=== PATIENT | male | born 1965 | race Caucasian/White ===

== ENCOUNTER 2021-12-05 13:39 | Inpatient (IN) | payer OTHER ==
[2021-12-05] MEDS ORDERED: SODIUM CHLORIDE 0.9% 1,000 ML IV STA (13:45)
[2021-12-05] MEDS ORDERED: HYDROmorphone 1 MG/ML 1 ML SYRINGE IVP STA (13:47)
--- NOTE | 2021-12-05 13:57 | ED ---
General Adult HPI - General Chief complaint: Chest Pain Stated complaint: chest pain Time Seen by Provider: 12/05/21 13:50 Source: patient, EMS Mode of arrival: EMS Limitations: no limitations - History of Present Illness Initial comments: 56-year-old male with no reported past medical history presents emergency Department with epigastric pain. He states it started right after he was eating lunch today. He has had some reflux over the past 2 days however today after eating some tomato soup and became sudden, sharp, 10 out of 10 pain. He called for an ambulance. EKG was performed which demonstrated significant ST segment depression with inverted T waves in all leads. They gave him a nitro and aspirin. Patient had no improvement in his symptoms. He denies any numbness or tingling in his extremities. No ripping or tearing sensation to his back. Denies previous history of cardiac disease. States he did have a stress test about 5 years ago and it was normal. Denies any fevers chills or cough. No previous abdominal surgeries. No other alleviating, precipitating or modifying factors - Related Data Home Medications Medication Instructions Recorded Confirmed Fenofibrate 160 mg PO DAILY 12/05/21 12/05/21 HYDROcodone/APAP 10-325MG [Alpha 1 tab PO TID 12/05/21 12/05/21 10-325] Olmesartan/Amlodipin/Hcthiazid 1 tab PO DAILY 12/05/21 12/05/21 [Tribenzor 40-10-25 mg Tablet] Semaglutide [Rybelsus] 14 mg PO DAILY 12/05/21 12/05/21 cloNIDine HCL [Catapres] 0.1 mg PO BID 12/05/21 12/05/21 metFORMIN HCL [Glucophage] 1,000 mg PO BID 12/05/21 12/05/21 Allergies Allergy/AdvReac Type Severity Reaction Status Date / Time No Known Allergies Allergy Verified 12/05/21 14:07 Review of Systems ROS Statement: Those systems with pertinent positive or pertinent negative responses have been documented in the HPI. ROS Other: All systems not noted in ROS Statement are negative. Past Medical History History of Any Multi-Drug Resistant Organisms: None Reported Smoking Status: Current every day smoker Past Alcohol Use History: None Reported Past Drug Use History: None Reported General Exam Limitations: no limitations General appearance: alert, in distress Head exam: Present: atraumatic, normocephalic, normal inspection Eye exam: Present: normal appearance, PERRL, EOMI. Absent: scleral icterus, conjunctival injection, periorbital swelling ENT exam: Present: normal exam, mucous membranes moist Neck exam: Present: normal inspection. Absent: tenderness, meningismus, lymphadenopathy Respiratory exam: Present: normal lung sounds bilaterally. Absent: respiratory distress, wheezes, rales, rhonchi, stridor Cardiovascular Exam: Present: regular rate, normal rhythm, normal heart sounds. Absent: systolic murmur, diastolic murmur, rubs, gallop, clicks GI/Abdominal exam: Present: soft, tenderness (epigastric), normal bowel sounds. Absent: distended, guarding, rebound, rigid Extremities exam: Present: normal inspection, full ROM, normal capillary refill. Absent: tenderness, pedal edema, joint swelling, calf tenderness Back exam: Present: normal inspection Neurological exam: Present: alert, oriented X3, CN II-XII intact Psychiatric exam: Present: normal affect, normal mood, anxious Skin exam: Present: warm, intact, normal color, diaphoretic. Absent: rash Course Vital Signs 12/05/21 12/05/21 12/05/21 13:40 14:33 15:00 Temperature 98.8 F Pulse Rate 58 L Respiratory 22 18 Rate Blood Pressure 163/94 194/109 O2 Sat by Pulse 98 96 Oximetry 12/05/21 12/05/21 12/05/21 16:00 17:00 18:00 Temperature Pulse Rate 82 84 82 Respiratory 16 18 18 Rate Blood Pressure 213/119 182/100 168/93 O2 Sat by Pulse 97 97 96 Oximetry 12/05/21 12/05/21 12/05/21 20:00 21:00 23:00 Temperature Pulse Rate 78 84 84 Respiratory 20 Rate Blood Pressure 190/89 177/89 220/114 O2 Sat by Pulse Oximetry 12/05/21 23:43 Temperature Pulse Rate 80 Respiratory Rate Blood Pressure 176/97 O2 Sat by Pulse Oximetry EKG Findings - EKG Comments: EKG Findings:: EKG demonstrates sinus bradycardia with a rate of 55. HI interval 160. QRS 138. QTC of 482. ST elevation aVR. Diffuse ST depression in the 2 through V6 as well as the inferior leads. Medical Decision Making - Medical Decision Making Upon arrival patient is probably placed in the trauma bay 4. He is hooked to continuous pulse ox and cardiac monitoring. IV access is established and he is given 1 mg of Dilaudid for pain control. Repeat EKG is performed which demonstrates significant ST segment depression. Laboratory studies are conducted and he is immediately taken over for CT of his abdomen and pelvis as there is concern for dissection. We do not lift for labs. Review the patient's laboratory studies done straight a white count of 14.1. Glucose is 342. Troponin negative. Lipase greater than 20,000. CT demonstrates no evidence of aortic dissection or aneurysm. Significant inflammatory changes surrounding the second and third part of the duodenum as well as the pancreatic head and neck. Patient is reevaluated and resting comfortably. Recommended admission for pancreatitis which the patient did agree to. Spoke with Dr. Albrecht who agreed to admit the patient. He does admit to daily alcohol use and therefore CIWA protocol also ordered. [place] score of 3 - Lab Data Result diagrams: 12/06/21 06:11 12/06/21 06:11 Lab Results 12/05/21 12/05/21 12/05/21 Range/Units 14:00 14:00 14:00 WBC 14.1 H (3.8-10.6) k/uL RBC 4.92 (4.30-5.90) m/uL Hgb 14.9 (13.0-17.5) gm/dL Hct 43.7 (39.0-53.0) % MCV 88.8 (80.0-100.0) fL MCH 30.2 (25.0-35.0) pg MCHC 34.0 (31.0-37.0) g/dL RDW 12.8 (11.5-15.5) % Plt Count 334 (150-450) k/uL MPV 7.6 Neutrophils % 60 % Lymphocytes % 31 % Monocytes % 5 % Eosinophils % 1 % Basophils % 1 % Neutrophils # 8.5 H (1.3-7.7) k/uL Lymphocytes # 4.4 (1.0-4.8) k/uL Monocytes # 0.8 (0-1.0) k/uL Eosinophils # 0.2 (0-0.7) k/uL Basophils # 0.1 (0-0.2) k/uL PT 9.9 (9.0-12.0) sec INR 0.9 (<1.2) APTT 20.7 L (22.0-30.0) sec Sodium 133 L (137-145) mmol/L Potassium 3.4 L (3.5-5.1) mmol/L Chloride 99 (98-107) mmol/L Carbon Dioxide 23 (22-30) mmol/L Anion Gap 11 mmol/L BUN 17 (9-20) mg/dL Creatinine 0.91 (0.66-1.25) mg/dL Est GFR (CKD-EPI)AfAm >90 (>60 ml/min/1.73 sqM) Est GFR (CKD-EPI)NonAf >90 (>60 ml/min/1.73 sqM) Glucose 342 H (74-99) mg/dL Calcium 8.9 (8.4-10.2) mg/dL Magnesium 2.3 (1.6-2.3) mg/dL Total Bilirubin 0.7 (0.2-1.3) mg/dL AST 19 (17-59) U/L ALT 20 (4-49) U/L Alkaline Phosphatase 82 (38-126) U/L Lactate Dehydrogenase (313-618) U/L Troponin I (0.000-0.034) ng/mL Total Protein 6.8 (6.3-8.2) g/dL Albumin 4.0 (3.5-5.0) g/dL Lipase >11397 H (23-300) U/L 12/05/21 12/05/21 Range/Units 14:00 14:00 WBC (3.8-10.6) k/uL RBC (4.30-5.90) m/uL Hgb (13.0-17.5) gm/dL Hct (39.0-53.0) % MCV (80.0-100.0) fL MCH (25.0-35.0) pg MCHC (31.0-37.0) g/dL RDW (11.5-15.5) % Plt Count (150-450) k/uL MPV Neutrophils % % Lymphocytes % % Monocytes % % Eosinophils % % Basophils % % Neutrophils # (1.3-7.7) k/uL Lymphocytes # (1.0-4.8) k/uL Monocytes # (0-1.0) k/uL Eosinophils # (0-0.7) k/uL Basophils # (0-0.2) k/uL PT (9.0-12.0) sec INR (<1.2) APTT (22.0-30.0) sec Sodium (137-145) mmol/L Potassium (3.5-5.1) mmol/L Chloride (98-107) mmol/L Carbon Dioxide (22-30) mmol/L Anion Gap mmol/L BUN (9-20) mg/dL Creatinine (0.66-1.25) mg/dL Est GFR (CKD-EPI)AfAm (>60 ml/min/1.73 sqM) Est GFR (CKD-EPI)NonAf (>60 ml/min/1.73 sqM) Glucose (74-99) mg/dL Calcium (8.4-10.2) mg/dL Magnesium (1.6-2.3) mg/dL Total Bilirubin (0.2-1.3) mg/dL AST (17-59) U/L ALT (4-49) U/L Alkaline Phosphatase (38-126) U/L Lactate Dehydrogenase 455 (313-618) U/L Troponin I <0.012 (0.000-0.034) ng/mL Total Protein (6.3-8.2) g/dL Albumin (3.5-5.0) g/dL Lipase (23-300) U/L Disposition Clinical Impression: Pancreatitis, Alcohol use disorder, Epigastric pain, Abnormal EKG Disposition: ADMITTED IP TO THIS [facility] Condition: Serious Is patient prescribed a controlled substance at d/c from ED?: No Time of Disposition: 16:32 Decision to Admit Reason: Admit from EC Decision Date: 12/05/21 Decision Time: 16:32
[2021-12-05 14:19] LABS: Basophils # (A) 0.1 k/uL (0-0.2); Basophils % (A) 1 %; Eosinophils # (A) 0.2 k/uL (0-0.7); Eosinophils % (A) 1 %; HCT 43.7 % (39.0-53.0); HGB 14.9 gm/dL (13.0-17.5); Lymphocytes # (A) 4.4 k/uL (1.0-4.8); Lymphocytes % (A) 31 %; MCH 30.2 pg (25.0-35.0); MCV 88.8 fL (80.0-100.0); Mean Platelet Volume 7.6; Monocytes # (A) 0.8 k/uL (0-1.0); Monocytes % (A) 5 %; Neutrophils # (A) 8.5 k/uL (1.3-7.7); Neutrophils % (A) 60 %; Platelet Count 334 k/uL (150-450); RBC 4.92 m/uL (4.30-5.90); RDW 12.8 % (11.5-15.5); WBC 14.1 k/uL (3.8-10.6)
[2021-12-05 14:33] LABS: ALT 20 U/L (4-49); AST 19 U/L (17-59); African American GFR (CKD) >90 (>60 ml/min/1.73 sqM); Alkaline Phosphatase 82 U/L (38-126); Anion Gap 11 mmol/L; Blood Urea Nitrogen 17 mg/dL (9-20); Calcium 8.9 mg/dL (8.4-10.2); Carbon Dioxide 23 mmol/L (22-30); Chloride 99 mmol/L (98-107); Glucose 342 mg/dL (74-99); Magnesium 2.3 mg/dL (1.6-2.3); Non-African American GFR(CKD) >90 (>60 ml/min/1.73 sqM); Potassium 3.4 mmol/L (3.5-5.1); Sodium 133 mmol/L (137-145); Total Bilirubin 0.7 mg/dL (0.2-1.3); Total Protein 6.8 g/dL (6.3-8.2)
--- NOTE | 2021-12-05 14:34 | XR ---
EXAMINATION TYPE: XR chest 1V portable DATE OF EXAM: 12/05/2021 COMPARISON: NONE HISTORY: Chest pain TECHNIQUE: Single frontal view of the chest is obtained. FINDINGS: There is no focal air space opacity, pleural effusion, or pneumothorax seen. The cardiac silhouette size is within normal limits. The osseous structures are intact. Ectasia of the aorta. M ild hyperinflation can be associated asthma or COPD. IMPRESSION: No acute process.
[2021-12-05 14:37] LABS: INR 0.9 (<1.2); Prothrombin Time 9.9 sec (9.0-12.0)
[2021-12-05 14:45] LABS: Partial Thromboplastin Time 20.7 sec (22.0-30.0)
--- NOTE | 2021-12-05 15:06 | CT ---
EXAMINATION TYPE: CT angio thor/abd pel aorta DATE OF EXAM: 12/05/2021 INDICATION: severe chest pain CT DLP: 2369.8 mGy.cm Automated Exposure Control for Dose Reduction was Utilized. TECHNIQUE AND CONTRAST: CT scan of the chest, abdomen and pelvis is performed without and with IV Contrast, as per aortic ang iogram protocol. The patient injected with 100 mL of Isovue 370. 3-D and MIP reconstruction images we re generated on an independent workstation and reviewed. COMPARISON: None available FINDINGS: Scattered arterial atherosclerotic calcifications. The ascending aorta measures up to 3.7 cm. Otherwi se normal caliber and enhancement of the thoracic and abdominal aorta as well as major mediastinal, a bdominal and pelvic arteries without significant stenosis, occlusion, dissection, aneurysm or AV malf ormation. No major or central pulmonary embolism. No gross cardiomegaly. Right lower lobe anterior 3 mm nodule. 4 mm nodule is seen at the medial aspect of the left upper lob e. Another more superior left upper lobe medial nodule measuring 4.3 mm. No follow-up is required for these nodules if low risk patient. If high risk patient, optional follow-up CT scan in 12 months can be considered. Grossly unremarkable lungs otherwise. Patent trachea and main bronchi. No pleural or pericardial effusion. Subcentimeter bilateral hilar, axillary and mediastinal lymph nodes, nonspecifi c. Enlarged liver with hepatic steatosis. Unremarkable gallbladder, spleen, adrenals and kidneys. Signif icant fat stranding surrounding the pancreatic head and neck and to a lesser extent the pancreatic joe dy suggestive of acute pancreatitis, please correlate clinically. 3 mm calcification is seen at the p osterior aspect of the pancreatic head. No CBD dilatation. Prostatic concretion. Unremarkable seminal vesicles and urinary bladder. Fluid and fat stranding are also seen surrounding the second and third parts of the duodenum. Grossly unremarkable stomach, remainder of the duodenum and small bowel. No gross colonic abnormality. Dulce l appendix. Subcentimeter mesenteric and retroperitoneal lymph nodes, nonspecific. Small fat-containi ng right inguinal hernia. No sizable ascites. No gross aggressive bone lesion. IMPRESSION: No evidence of aortic dissection, stenosis, occlusion or aneurysm. Significant inflammatory changes surrounding the second and third parts of the duodenum as well as th e pancreatic head and neck as detailed above. This could be related to an acutely inflamed peptic ulc er or acute pancreatitis, recommend clinical correlation, surgical consultation and further workup. O ther findings as described above.
[2021-12-05 15:15] LABS: Lipase >20000 U/L (23-300)
[2021-12-05] MEDS ORDERED: ONDANSETRON 4 MG/2 ML VIAL IVP PRN (16:32)
[2021-12-05] MEDS ORDERED: NALOXONE 0.4 MG/ML 1 ML VIAL IV PRN (16:32)
[2021-12-05] MEDS: HYDROmorphone 1 MG/ML 1 ML SYRINGE IVP PRN ×3 (16:52→23:11)
[2021-12-05] MEDS: SODIUM CHLORIDE 0.9% 1,000 ML IV SCH (16:56)
[2021-12-05] MEDS ORDERED: hydrALAZINE HCL 20 MG/ML 1 ML VIAL IVP STA (17:05)
[2021-12-05] MEDS ORDERED: LORazepam 2 MG/ML INJ IV PRN ×3 (17:06)
[2021-12-05] MEDS ORDERED: THIAMINE 100 MG/ML 2 ML VIAL IM STA (17:06)
[2021-12-05] MEDS: cloNIDine HCL 0.1 MG TAB PO SCH (23:10)
[2021-12-06 01:28] LABS: Glucose,Whole Blood 300 mg/dL (75-99)
[2021-12-06] MEDS: INSULIN ASPART (NovoLOG) 100 UNIT/ML VIAL SQ SCH ×5 (01:29→20:47)
[2021-12-06] MEDS: SODIUM CHLORIDE 0.9% 1,000 ML IV SCH ×3 (01:30→15:11)
[2021-12-06] MEDS: HYDROmorphone 1 MG/ML 1 ML SYRINGE IVP PRN ×7 (02:21→20:46)
[2021-12-06] MEDS: hydrALAZINE HCL 20 MG/ML 1 ML VIAL IVP PRN (05:22)
[2021-12-06 06:59] LABS: Glucose,Whole Blood 255 mg/dL (75-99)
[2021-12-06] MEDS: THIAMINE 100 MG TAB PO SCH ×2 (07:57→18:05)
[2021-12-06] MEDS: FENOFIBRATE 160 MG TAB PO SCH (07:57)
[2021-12-06] MEDS: cloNIDine HCL 0.1 MG TAB PO SCH ×2 (08:00→20:47)
[2021-12-06] MEDS ORDERED: LOSARTAN 50 MG TAB PO SCH (09:30)
[2021-12-06 09:47] LABS: African American GFR (CKD) 129.4 (60.0-200.0); Anion Gap 13.6 mmol/L (10.00-18.00); BUN/Creat Ratio 18.67 Ratio (12.00-20.00); Blood Urea Nitrogen 11.2 mg/dL (9.0-27.0); Calcium 8.6 mg/dL (8.7-10.3); Carbon Dioxide 23.4 mmol/L (20.0-27.5); Non-African American GFR(CKD) 111.6 (60.0-200.0); Potassium 3.7 mmol/L (3.5-5.5)
--- NOTE | 2021-12-06 09:50 | US ---
EXAMINATION TYPE: US gallbladder DATE OF EXAM: 12/06/2021 COMPARISON: CT 2021, US 2016 CLINICAL HISTORY: pancreatitis. Abdomen pain Exam done portable EXAM MEASUREMENTS: Liver Length: 21.4 cm Gallbladder Wall: 0.2 cm CBD: 0.8 cm Right Kidney: 12.0 x 5.6 x 6.3 cm Pancreas: partially obscured by overlying midline bowel gas Liver: enlarged, attenuating, increased echogenicity, heterogeneous with 2.3cm hypoechoic area adjac ent to gallbladder Gallbladder: borderline hydropic, 0.4cm hyperechoic non shadowing non mobile focus along posterior w all Evidence for sonographic Hillman's sign: no CBD: dilated Right Kidney: wnl IMPRESSION: 1. Nonspecific pattern to the liver represent hepatic CT stenosis with focal fatty sparing. Correlate clinically to exclude hepatocellular disease. 2. Gallbladder is borderline hydropic a 4 mm echogenic focus which could represent a nonshadowing sto ne versus gallbladder polyp. Common bile duct is dilated measuring 8 mm correlate for CBD obstruction .
[2021-12-06] MEDS: LOSARTAN 50 MG TAB PO SCH (10:12)
[2021-12-06 10:53] LABS: Basophils # (A) 0.02 X 10*3/uL (0.00-0.10); Basophils % (A) 0.1 %; Eosinophils # (A) 0.02 X 10*3/uL (0.04-0.35); Eosinophils % (A) 0.1 %; HCT 42.8 % (39.6-50.0); HGB 14.7 g/dL (13.0-17.0); Immature Grans, Automated 0.4 %; Lymphocytes # (A) 2.15 X 10*3/uL (0.90-5.00); Lymphocytes % (A) 13.9 %; MCH 29.5 pg (27.0-32.0); MCHC 34.3 g/dL (32.0-37.0); MCV 85.8 fL (80.0-97.0); Monocytes # (A) 0.87 X 10*3/uL (0.20-1.00); Monocytes % (A) 5.6 %; NRBC Per 100 WBC 0 /100 WBCS (0.0-0.0); Neutrophils % (A) 79.9 %; Platelet Count 228 X 10*3/uL (140-440); RBC 4.99 X 10*6/uL (4.40-5.60); RDW 12.9 % (11.5-14.5); WBC 15.52 X 10*3/uL (4.50-10.00)
[2021-12-06 10:54] LABS: RBC Morphology NORMAL
[2021-12-06 11:38] LABS: Glucose,Whole Blood 241 mg/dL (75-99)
--- NOTE | 2021-12-06 12:20 | P.CRDCN ---
History of Present Illness Consult date: 12/06/21 History of present illness: HISTORY OF PRESENT ILLNESS: This is a 56-year-old male with a past medical history significant for hypertension, hyperlipidemia, diabetes, nicotine dependence, and frequent alcohol use. Patient does not follow with a retail aide. We have been asked to see the patient in consultation for abnormal EKG. Patient examined at the bedside. Patient presented to the hospital with a chief complaint of abdominal pain. Patient was found to have pancreatitis with lipase greater than 20,000. EKG completed revealing sinus bradycardia with right bundle branch block and T- wave inversions in anterior lateral leads as well as inferior leads. Patient denies having any chest pain or pressure. He does report some occasional sh ortness of breath with exertion. Blood pressure uncontrolled with SBP 190-200. Patients blood pressure medications were adjusted this morning by internal medicine. * EKG reveals sinus bradycardia with right bundle branch block and T-wave inversions in anterior lateral leads as well as inferior leads. * Chest xray negative for acute process * Laboratory data: CBC 15.52. Hemoglobin 14.7. Platelet count 228. Sodium 135. Potassium 3.7. BUN 11. Creatinine 0.6. Troponin negative 3. Lipase greater than 20,000 * Current home cardiac medications include Olmesartan/amlodipine/hydrochlorothiazide 40-10-25 mg daily, catapres 0.1 BID, and fenofibrate 160 mg daily * Patient underwent Lexiscan stress test in 2016 which was negative for ischemia REVIEW OF SYSTEMS: At the time of my exam: CONSTITUTIONAL: Denies fever or chills. HEENT: Denies blurred vision, vision changes, or eye pain. Denies hemoptysis CARDIOVASCULAR: Denies chest pain. Denies orthopnea. Denies PND. Denies palpitations RESPIRATORY: Denies shortness of breath. GASTROINTESTINAL: Denies abdominal pain. Denies nausea or vomiting. HEMATOLOGIC: Denies bleeding disorders. GENITOURINARY: Denies any blood in urine. SKIN: Denies pruitis. Denies rash. PHYSICAL EXAM: VITAL SIGNS: Reviewed. GENERAL: Well-developed in no acute distress. HEENT: Head is normocephalic. Pupils are equal, round. Sclerae anicteric. Mucous membranes of the mouth are moist. Neck supple. No JVD or thyromegaly LUNGS: Respirations even and unlabored. Lungs essentially clear to auscultation bilaterally. HEART: Regular rate and rhythm. S1 and S2 heard. ABDOMEN: Soft. Nondistended. Nontender. EXTREMITIES: Normal range of motion. No clubbing or cyanosis. Peripheral pulses intact. No lower extremity edema NEUROLOGIC: Awake and alert. Oriented x 3. ASSESSMENT: Abdominal pain Pancreatitis Abnormal EKG with diffuse T-wave inversions Hypertension, uncontrolled Hyperlipidemia Diabetes Nicotine dependence Frequent alcohol use PLAN: Obtain 2D echo to assess cardiac structure and function Monitor blood pressure Add amlodipine 10 mg daily for optimal blood pressure control Patient will require stress testing when he is medically stable Further recommendations pending patient course Nurse practitioner note has been reviewed by physician. Signing provider agrees with the documented findings, assessment, and plan of care. Past Medical History Past Medical History: Hyperlipidemia, Hypertension, Osteoarthritis (OA) History of Any Multi-Drug Resistant Organisms: None Reported Past Surgical History: Hernia Repair, Tonsillectomy Past Anesthesia/Blood Transfusion Reactions: No Reported Reaction Smoking Status: Current every day smoker Past Alcohol Use History: None Reported Past Drug Use History: None Reported Medications and Allergies Home Medications Medication Instructions Recorded Confirmed Type Fenofibrate 160 mg PO DAILY 12/05/21 12/05/21 History HYDROcodone/APAP 10-325MG [[place] 1 tab PO TID 12/05/21 12/05/21 History 10-325] Olmesartan/Amlodipin/Hcthiazid 1 tab PO DAILY 12/05/21 12/05/21 History [Tribenzor 40-10-25 mg Tablet] Semaglutide [Rybelsus] 14 mg PO DAILY 12/05/21 12/05/21 History cloNIDine HCL [Catapres] 0.1 mg PO BID 12/05/21 12/05/21 History metFORMIN HCL [Glucophage] 1,000 mg PO BID 12/05/21 12/05/21 History Allergies Allergy/AdvReac Type Severity Reaction Status Date / Time No Known Allergies Allergy Verified 12/05/21 14:07 Physical Exam Vitals: Vital Signs Temp Pulse Pulse Resp BP BP Pulse Ox 12/06/21 05:05 193/97 12/06/21 04:40 97.6 F 89 20 217/113 92 L 12/06/21 01:28 98.5 F 93 20 217/106 95 12/05/21 23:43 80 176/97 12/05/21 23:00 84 220/114 12/05/21 21:00 84 177/89 12/05/21 20:00 78 20 190/89 12/05/21 18:00 82 18 168/93 96 12/05/21 17:00 84 18 182/100 97 12/05/21 16:00 82 16 213/119 97 12/05/21 15:00 18 194/109 96 12/05/21 14:33 98.8 F 12/05/21 13:40 58 L 22 163/94 98 Intake and Output 12/05/21 12/06/21 12/06/21 22:59 06:59 14:59 Other: # Voids 2 Weight 104.326 kg Results 12/06/21 06:11 12/06/21 06:11 Cardiac Enzymes 12/05/21 12/05/21 12/05/21 Range/Units 14:00 14:00 14:00 AST 19 (17-59) U/L Lactate Dehydrogenase 455 (313-618) U/L Troponin I <0.012 (0.000-0.034) ng/mL 12/05/21 12/05/21 Range/Units 18:26 21:21 AST (17-59) U/L Lactate Dehydrogenase (313-618) U/L Troponin I <0.012 <0.012 (0.000-0.034) ng/mL Coagulation 12/05/21 Range/Units 14:00 PT 9.9 (9.0-12.0) sec APTT 20.7 L (22.0-30.0) sec CBC 12/05/21 12/06/21 Range/Units 14:00 06:11 WBC 14.1 H 15.52 H (3.8-10.6) k/uL RBC 4.92 4.99 (4.30-5.90) m/uL Hgb 14.9 14.7 (13.0-17.5) gm/dL Hct 43.7 42.8 (39.0-53.0) % Plt Count 334 228 (150-450) k/uL Comprehensive Metabolic Panel 12/05/21 12/06/21 Range/Units 14:00 06:11 Sodium 133 L 135 (137-145) mmol/L Potassium 3.4 L 3.7 (3.5-5.1) mmol/L Chloride 99 98 (98-107) mmol/L Carbon Dioxide 23 23.4 (22-30) mmol/L BUN 17 11.2 (9-20) mg/dL Creatinine 0.91 0.6 (0.66-1.25) mg/dL Glucose 342 H 264 H (74-99) mg/dL Calcium 8.9 8.6 L (8.4-10.2) mg/dL AST 19 (17-59) U/L ALT 20 (4-49) U/L Alkaline Phosphatase 82 (38-126) U/L Total Protein 6.8 (6.3-8.2) g/dL Albumin 4.0 (3.5-5.0) g/dL Current Medications Generic Name Dose Route Start Last Admin Trade Name Freq PRN Reason Stop Dose Admin Clonidine 0.1 mg 12/05/21 21:00 12/06/21 08:00 Clonidine Hcl 0.1 Mg Tab PO 0.1 mg BID MARIA ELENA Administration Fenofibrate 160 mg 12/06/21 09:00 12/06/21 07:57 Fenofibrate 160 Mg Tab PO 160 mg DAILY MARIA ELENA Administration Hydralazine HCl 10 mg 12/06/21 05:02 12/06/21 05:22 Hydralazine Hcl 20 Mg/Ml 1 Ml Vial IVP 10 mg Q4HR PRN Administration Blood Pressure - High Hydromorphone HCl 1 mg 12/05/21 16:32 12/06/21 11:48 Hydromorphone 1 Mg/Ml 1 Ml Syringe IVP 1 mg Q3HR PRN Administration Severe Pain Sodium Chloride 1,000 mls @ 100 mls/hr 12/05/21 16:45 12/06/21 07:58 Saline 0.9% IV 130 mls/hr .Q10H MARIA ELENA Administration Insulin Aspart 0 unit 12/05/21 21:00 12/06/21 07:57 Insulin Aspart (Novolog) 100 Unit/Ml Vial SQ 4 unit ACHS MARIA ELENA Administration Protocol Lorazepam 1 mg 12/05/21 17:06 Lorazepam 2 Mg/Ml Inj IV Q2HR PRN CIWA 8 or 9 Lorazepam 1 mg 12/05/21 17:06 Lorazepam 2 Mg/Ml Inj IV Q1HR PRN CIWA 10 to 15 Lorazepam 2 mg 12/05/21 17:06 Lorazepam 2 Mg/Ml Inj IV 12/07/21 17:06 Q10M PRN CIWA 16 or higher Losartan Potassium 100 mg 12/06/21 09:30 12/06/21 10:12 Losartan 50 Mg Tab PO 100 mg DAILY MARIA ELENA Administration Naloxone HCl 0.2 mg 12/05/21 16:32 Naloxone 0.4 Mg/Ml 1 Ml Vial IV Q2M PRN Opioid Reversal Ondansetron HCl 4 mg 12/05/21 16:32 12/05/21 20:18 Ondansetron 4 Mg/2 Ml Vial IVP 4 mg Q8HR PRN Administration Nausea And Vomiting Pantoprazole Sodium 40 mg 12/06/21 12:00 Pantoprazole 40 Mg/10 Ml Vial IVP BID MARIA ELENA Thiamine HCl 100 mg 12/06/21 07:30 12/06/21 07:57 Thiamine 100 Mg Tab PO 100 mg BID-W/MEALS MARIA ELENA Administration Intake and Output 12/05/21 12/06/21 12/06/21 22:59 06:59 14:59 Other: # Voids 2 Weight 104.326 kg 12/06/21 06:11 12/06/21 06:11
--- NOTE | 2021-12-06 12:22 | CA ---
Transthoracic Echo Report Name: Siva Brady Age: 56 Gender: M : 1965 Exam Date: 12/06/2021 11:15 Exam Location: [facility] Ht (in): 68 Wt (lb): 230 Ordering Physician: Rachel Harkins Attending/Referring Phys: [id number], Shahana Simplex Operator Alesha Taylor RDCS Procedure CPT: Indications: LV function Cardiac Hx: Technical Quality: Technically difficult study Contrast 1: Lumason Total Dose (mL): 4 Contrast 2: Total Dose (mL): MEASUREMENTS (Male / Female) Normal Values 2D ECHO LV Diastolic Diameter PLAX 3.9 cm 4.2 - 5.9 / 3.9 - 5.3 cm LV Systolic Diameter PLAX 2.1 cm IVS Diastolic Thickness 1.7 cm 0.6 - 1.0 / 0.6 - 0.9 cm LVPW Diastolic Thickness 1.6 cm 0.6 - 1.0 / 0.6 - 0.9 cm LV Relative Wall Thickness 0.9 RV Internal Dim ED PLAX 4.1 cm LA Volume 77.4 cm??? 18 - 58 / 22 - 52 cm??? M-MODE Aortic Root Diameter MM 3.5 cm LA Systolic Diameter MM 3.5 cm LA Ao Ratio MM 1.0 DOPPLER AV Peak Velocity 183.3 cm/s AV Peak Gradient 13.4 mmHg LVOT Peak Velocity 133.8 cm/s LVOT Peak Gradient 7.2 mmHg MV Area PHT 4.0 cm??? Mitral E Point Velocity 79.5 cm/s Mitral A Point Velocity 69.8 cm/s Mitral E to A Ratio 1.1 MV Deceleration Time 189.9 ms MV E' Velocity 6.9 cm/s Mitral E to MV E' Ratio 11.6 TR Peak Velocity 213.6 cm/s TR Peak Gradient 18.3 mmHg Right Ventricular Systolic Press 23.3 mmHg FINDINGS Left Ventricle Normal left ventricular systolic function with no obvious regional wall motion abnormalities. Normal left ventricular diastolic filling pattern. Left ventricular ejection fraction is estimated at 55-60 %. Right Ventricle Right ventricle not well visualized. Right ventricular systolic pressure within normal limits. Right Atrium Normal right atrial size. Left Atrium Moderately increased left atrial volume. Mitral Valve Structurally normal mitral valve. [id number] mitral regurgitation. Aortic Valve No aortic valve stenosis or regurgitation. Tricuspid Valve Mild tricuspid regurgitation. Pulmonic Valve Trace pulmonic regurgitation. Pericardium No pericardial effusion. Aorta Normal size aortic root and proximal ascending aorta. CONCLUSIONS 1. Normal left ventricle size and function. #2. Moderate left atrial enlargement #3. Mild to moderate mitral regurgitation #4. Mild tricuspid regurgitation Previewed by: Dr. Jaxson Balbuena MD (Electronically Signed) Final Date: 06 December 2021 12:21
[2021-12-06] MEDS: PANTOPRAZOLE 40 MG/10 ML VIAL IVP SCH ×2 (13:01→20:47)
[2021-12-06] MEDS: amLODIPine 10 MG TAB PO SCH (13:01)
[2021-12-06 14:27] LABS: Total Bilirubin 0.4 mg/dL (0.30-1.20)
--- NOTE | 2021-12-06 14:32 | P.CONS ---
History of Present Illness - Reason for Consult Consult date: 12/06/21 Pancreatitis Requesting physician: Obed Albrecht - Chief Complaint Epigastric pain - History of Present Illness This a pleasant 56-year-old male who presented to the emergency department by EMS for sudden onset of severe epigastric/chest pain. States it began 2-3 days ago after eating soup yesterday the pain became very severe and rated it a 10 out of 10. He states that he did have some nausea and vomiting yesterday evening. States pain has improved somewhat today and is a 5-6 out of 10. He was also noted to have EKG changes on admission and cardiology was consulted. Cardiology recommended echo cardiogram and stress testing when patient medically stable. Patient denies any previous history of coronary artery disease. Patient was noted to have significantly elevated lipase greater than 20,000, consistent with acute pancreatitis. Gastroenterology was consulted for pancreatitis. Patient denies any previous history of pancreatitis in the past. Denies any previous history of cholecystectomy or gallbladder disease. No new medications or recent antibiotics. States that he is a moderate drinker 6 pack or more of beer a week along with shots of whiskey for many many years. Denies any history of underlying liver disease. Patient underwent CT angiogram thoracic and abdomen pelvis and aorta that showed significant inflammatory changes around the second and third parts of the duodenum as well as the pancreatic head and neck. Review of Systems REVIEW OF SYSTEMS: CARDIOPULMONARY: No chest pain or shortness of breath. Gastrointestinal: Right upper quadrant and epigastric pain. Nausea and vomiting. No hematemesis, coffee-ground emesis. No rectal bleeding, or melena. GENITOURINARY: No dysuria or hematuria. MUSCULOSKELETAL: Reports normal range of motion., Joint pain. SKIN: No rashes. No jaundice. ENDOCRINE: No chills, fevers. No excessive weight gain or loss. No polydipsia or polyuria. PSYCHIATRIC: Unremarkable. NEUROLOGY: No change in mental status. Denies dizziness, headache. ENT: Vision unremarkable. CONSTITUTIONAL: No recent weight loss. No fever, chills, night sweats. Past Medical History Past Medical History: Hyperlipidemia, Hypertension, Osteoarthritis (OA) History of Any Multi-Drug Resistant Organisms: None Reported Past Surgical History: Hernia Repair, Tonsillectomy Past Anesthesia/Blood Transfusion Reactions: No Reported Reaction Smoking Status: Current every day smoker Past Alcohol Use History: None Reported Past Drug Use History: None Reported Medications and Allergies Home Medications Medication Instructions Recorded Confirmed Type Fenofibrate 160 mg PO DAILY 12/05/21 12/05/21 History HYDROcodone/APAP 10-325MG [Brohard 1 tab PO TID 12/05/21 12/05/21 History 10-325] Olmesartan/Amlodipin/Hcthiazid 1 tab PO DAILY 12/05/21 12/05/21 History [Tribenzor 40-10-25 mg Tablet] Semaglutide [Rybelsus] 14 mg PO DAILY 12/05/21 12/05/21 History cloNIDine HCL [Catapres] 0.1 mg PO BID 12/05/21 12/05/21 History metFORMIN HCL [Glucophage] 1,000 mg PO BID 12/05/21 12/05/21 History Allergies Allergy/AdvReac Type Severity Reaction Status Date / Time No Known Allergies Allergy Verified 12/05/21 14:07 Physical Exam Vitals: Vital Signs Temp Pulse Pulse Resp BP BP Pulse Ox 12/06/21 12:21 98.1 F 88 16 189/87 98 12/06/21 05:05 193/97 12/06/21 04:40 97.6 F 89 20 217/113 92 L 12/06/21 01:28 98.5 F 93 20 217/106 95 12/05/21 23:43 80 176/97 12/05/21 23:00 84 220/114 12/05/21 21:00 84 177/89 12/05/21 20:00 78 20 190/89 12/05/21 18:00 82 18 168/93 96 12/05/21 17:00 84 18 182/100 97 12/05/21 16:00 82 16 213/119 97 12/05/21 15:00 18 194/109 96 12/05/21 14:33 98.8 F Intake and Output 12/05/21 12/06/21 12/06/21 22:59 06:59 14:59 Other: # Voids 2 Weight 104.326 kg General appearance: The patient is alert, oriented, appears in no acute distress. HET: Head is normocephalic and atraumatic. Conjunctiva pink. Sclera anicteric. Neck: Supple without lymphadenopathy. Trachea midline. Heart: S1 S2. Regular rate and rhythm. Lungs: Clear to auscultation. Abdomen: Soft, right upper quadrant tenderness, nondistended with hypoactive bowel sounds. No guarding or rigidity. Skin: No rashes. No jaundice. Extremities: Normal skin color and turgor. No pedal edema. Neurological: No focal deficits. Alert and oriented x3. Results CBC & Chem 7: 12/06/21 06:11 12/06/21 06:11 Labs: Abnormal Lab Results - Last 24 Hours (Table) 12/05/21 12/05/21 12/05/21 Range/Units 14:00 14:00 14:00 WBC 14.1 H (3.8-10.6) k/uL Immature Gran # (0.00-0.04) X 10*3/uL Neutrophils # 8.5 H (1.3-7.7) k/uL Eosinophils # (0.04-0.35) X 10*3/uL APTT 20.7 L (22.0-30.0) sec Sodium 133 L (137-145) mmol/L Potassium 3.4 L (3.5-5.1) mmol/L Glucose 342 H (74-99) mg/dL POC Glucose (mg/dL) (75-99) mg/dL Calcium (8.7-10.3) mg/dL Lipase >52225 H (23-300) U/L 12/06/21 12/06/21 12/06/21 Range/Units 01:27 06:11 06:11 WBC 15.52 H (3.8-10.6) k/uL Immature Gran # 0.06 H (0.00-0.04) X 10*3/uL Neutrophils # 12.40 H (1.3-7.7) k/uL Eosinophils # 0.02 L (0.04-0.35) X 10*3/uL APTT (22.0-30.0) sec Sodium (137-145) mmol/L Potassium (3.5-5.1) mmol/L Glucose 264 H (74-99) mg/dL POC Glucose (mg/dL) 300 H (75-99) mg/dL Calcium 8.6 L (8.7-10.3) mg/dL Lipase (23-300) U/L 12/06/21 12/06/21 Range/Units 06:57 11:36 WBC (3.8-10.6) k/uL Immature Gran # (0.00-0.04) X 10*3/uL Neutrophils # (1.3-7.7) k/uL Eosinophils # (0.04-0.35) X 10*3/uL APTT (22.0-30.0) sec Sodium (137-145) mmol/L Potassium (3.5-5.1) mmol/L Glucose (74-99) mg/dL POC Glucose (mg/dL) 255 H 241 H (75-99) mg/dL Calcium (8.7-10.3) mg/dL Lipase (23-300) U/L Comments: CT angiogram thoracic and abdomen pelvis and aorta that showed no evidence of aortic dissection, stenosis, occlusion or aneurysm. Significant inflammatory changes around the second and third parts of the duodenum as well as the pancreatic head and neck. Assessment and Plan (1) Pancreatitis Narrative/Plan: 56-year-old who presented with epigastric pain with acute onset. No previous history of pancreatitis, however admitting labs showed elevated lipase greater than 20,000 consistent with acute pancreatitis. Patient admits to moderate alcohol use over the last several years. No new medications or family history of pancreatitis. CT angiogram did show significant inflammation surrounding the pancreas. Ultrasound of the gallbladder shows enlarged heterogeneous liver consistent with underlying fatty liver/hepatocellular disease. Gallbladder borderline hydropic with questionable non-mobile focus along posterior wall. However LFTs are normal and neck consistent with gallstone pancreatitis. Etiology likely due to underlying alcohol abuse. Continue with IV hydration, pain medications, and nothing by mouth diet. Current Visit: Yes Status: Acute Code(s): K85.90 - ACUTE PANCREATITIS WITHOUT NECROSIS OR INFECTION, UNSP SNOMED Code(s): 98641843 (2) Alcohol use disorder Current Visit: Yes Status: Acute Code(s): IQW2709 - SNOMED Code(s): 4192974 (3) Abnormal EKG Current Visit: Yes Status: Acute Code(s): R94.31 - ABNORMAL JUNIOR CTROCARDIOGRAM [ECG] [EKG] SNOMED Code(s): 970424763 Plan: 1. Continue symptomatic and supportive care 2. Aggressive IV hydration 3. Pain medication as needed 4. Nothing by mouth except for ice chips 5. Gallbladder ultrasound ordered and reviewed 6. Antiemetics as needed 7. Repeat labs in the morning Thank you for this consultation, we will continue to follow. Dr. Yesenia León I agree with the dictator's note, documented as a scribe by Leona Levy.
--- NOTE | 2021-12-06 15:00 | P.HPIM ---
History of Present Illness H&P Date: 12/06/21 This is a 56-year-old male who presents to hospital with complaints of epigastric pain ongoing over the last few days. States he had eaten a steak for dinner and the pain got worse. Decides to come to the when pain became 10/10 and severe following lunch at work the following day. He also had some associated nausea and vomiting. Thoracic Aorta CT shows no evidence for aortic dissection, there is significant inflammatory changes around the duodenum, pancreatic head and neck. Lipase is >20,000, most likely acute pancreatitis, lipase has improved down to 1203 following NPO diet with ice chips and hydration with normal saline. Chest xray is negative. Past medical history includes diabetes mellitus, hyperlipidemia, hypertension, arthritis, daily 1/2 pack per day smoker. Patient also reports drinking 6 plus packs of beer per week and well as whiskey. He has no history of acid reflux, or liver disease. He does follow with Dr Muñoz for pain management outpatient. Does not check his blood sugars at home. States he has not had a colonoscopy before, possibly an upper endoscopy in the past he is not sure for what. Cardiology and GI services have been consulted. Blood pressure is elevated in the 200s systolic, losartan was increased, he is also receiving PRN hydralazine. Additional labs showing white count 14.1, sodium 133, potassium 3.4. Troponin negative x 3. EKG showing sinus bradycardia with right bundle branch block, T wave inversion Gallbladder ultrasound showing stone vs. gall bladder polyp, and common bile duct is dilated measuring 8mm, correlate for CBD obstruction Echocardiogram showing EF 55-60% with mild tricuspid regurg and mild to moderate mitral regurg. Moderate left atrial enlargement. REVIEW OF SYSTEMS: CONSTITUTIONAL: No fever, no malaise, no fatigue. HEENT: No recent visual problems or hearing problems. Denied any sore throat. CARDIOVASCULAR: No chest pain, orthopnea, PND, no palpitations, no syncope. PULMONARY: No shortness of breath, no cough, no hemoptysis. GASTROINTESTINAL: No diarrhea, no nausea, no vomiting. Reports sharp epigastric pain radiating to the LUQ rating 10/10 NEUROLOGICAL: No headaches, no weakness, no numbness. HEMATOLOGICAL: Denies any bleeding or petechiae. GENITOURINARY: Denies any burning micturition, frequency, or urgency. MUSCULOSKELETAL/RHEUMATOLOGICAL: Denies any joint pain, swelling, or any muscle pain. ENDOCRINE: Denies any polyuria or polydipsia. The rest of the 14-point review of systems is negative. PHYSICAL EXAMINATION: GENERAL: The patient is alert and oriented x3, not in any acute distress. Well developed, well nourished. Obese. HEENT: Pupils are round and equally reacting to light. EOMI. No scleral icterus. No conjunctival pallor. Normocephalic, atraumatic. No pharyngeal erythema. No thyromegaly. CARDIOVASCULAR: S1 and S2 present. No murmurs, rubs, or gallops. PULMONARY: Chest is clear to auscultation, no wheezing or crackles. ABDOMEN: Soft, tender epigastric and LUQ, nondistended, normoactive bowel sounds. No palpable organomegaly. MUSCULOSKELETAL: No joint swelling or deformity. EXTREMITIES: No cyanosis, clubbing, or pedal edema. NEUROLOGICAL: Gross neurological examination did not reveal any focal deficits. SKIN: No rashes. Assessment and Plan Assessment Acute epigastric abdominal pain Acute pancreatitis Abnormal EKG, cardiology has been consulted Diabetes mellitus type 2 with hyperglycemia Hypertension, uncontrolled on admission Hyperlipidemia Chronic alcohol abuse, counseling provided Chronic daily tobacco use, counseling provided Chronic pain Obesity GI Prophylaxis DVT Prophylaxis Full Code Plan Continue NPO diet with ice chips Continue IV fluids Pain management Blood pressure medication adjustments Stress test recommended by cardiology once medically stable Cardiology, GI consultation Repeat labs tomorrow A1c Pending The impression and plan of care has been dictated by Antonina Hannah Nurse Practitioner as directed. Dr. Lili MD I have performed a history and physical examination and medical decision making of this patient, discussed the same with the dictator, and agree with the dictators assessment and plan as written, documented as a scribe. Based on total visit time, I have performed more than 50% of this visit. Past Medical History Past Medical History: Hyperlipidemia, Hypertension, Osteoarthritis (OA) History of Any Multi-Drug Resistant Organisms: None Reported Past Surgical History: Hernia Repair, Tonsillectomy Past Anesthesia/Blood Transfusion Reactions: No Reported Reaction Smoking Status: Current every day smoker Past Alcohol Use History: None Reported Past Drug Use History: None Reported Medications and Allergies Home Medications Medication Instructions Recorded Confirmed Type Fenofibrate 160 mg PO DAILY 12/05/21 12/05/21 History HYDROcodone/APAP 10-325MG [Clementon 1 tab PO TID 12/05/21 12/05/21 History 10-325] Olmesartan/Amlodipin/Hcthiazid 1 tab PO DAILY 12/05/21 12/05/21 History [Tribenzor 40-10-25 mg Tablet] Semaglutide [Rybelsus] 14 mg PO DAILY 12/05/21 12/05/21 History cloNIDine HCL [Catapres] 0.1 mg PO BID 12/05/21 12/05/21 History metFORMIN HCL [Glucophage] 1,000 mg PO BID 12/05/21 12/05/21 History Allergies Allergy/AdvReac Type Severity Reaction Status Date / Time No Known Allergies Allergy Verified 12/05/21 14:07 Physical Exam Vitals: Vital Signs Temp Pulse Pulse Resp BP BP Pulse Ox 12/06/21 05:05 193/97 12/06/21 04:40 97.6 F 89 20 217/113 92 L 12/06/21 01:28 98.5 F 93 20 217/106 95 12/05/21 23:43 80 176/97 12/05/21 23:00 84 220/114 12/05/21 21:00 84 177/89 12/05/21 20:00 78 20 190/89 12/05/21 18:00 82 18 168/93 96 12/05/21 17:00 84 18 182/100 97 12/05/21 16:00 82 16 213/119 97 12/05/21 15:00 18 194/109 96 12/05/21 14:33 98.8 F 12/05/21 13:40 58 L 22 163/94 98 Intake and Output 12/05/21 12/06/21 12/06/21 22:59 06:59 14:59 Other: # Voids 2 Weight 104.326 kg Results CBC & Chem 7: 12/06/21 06:11 12/06/21 06:11 Labs: Abnormal Lab Results - Last 24 Hours (Table) 12/05/21 12/05/21 12/05/21 Range/Units 14:00 14:00 14:00 WBC 14.1 H (3.8-10.6) k/uL Neutrophils # 8.5 H (1.3-7.7) k/uL APTT 20.7 L (22.0-30.0) sec Sodium 133 L (137-145) mmol/L Potassium 3.4 L (3.5-5.1) mmol/L Glucose 342 H (74-99) mg/dL POC Glucose (mg/dL) (75-99) mg/dL Lipase >82562 H (23-300) U/L 12/06/21 12/06/21 Range/Units 01:27 06:57 WBC (3.8-10.6) k/uL Neutrophils # (1.3-7.7) k/uL APTT (22.0-30.0) sec Sodium (137-145) mmol/L Potassium (3.5-5.1) mmol/L Glucose (74-99) mg/dL POC Glucose (mg/dL) 300 H 255 H (75-99) mg/dL Lipase (23-300) U/L Thrombosis Risk Factor Assmnt - Choose All That Apply Any of the Below Risk Factors Present?: Yes Each Factor Represents 1 point: Age 41-60 years, Obesity (BMI >25) Other Risk Factors: Yes Thrombosis Risk Factor Assessment Total Risk Factor Score: 2 Thrombosis Risk Factor Assessment Level: Low Risk Assessment and Plan Time with Patient: Less than 30
[2021-12-06 17:18] LABS: Glucose,Whole Blood 203 mg/dL (75-99)
[2021-12-06 20:10] LABS: Glucose,Whole Blood 190 mg/dL (75-99)
[2021-12-07] MEDS: HYDROmorphone 1 MG/ML 1 ML SYRINGE IVP PRN ×3 (00:27→07:31)
[2021-12-07] MEDS: SODIUM CHLORIDE 0.9% 1,000 ML IV SCH ×3 (03:32→20:54)
[2021-12-07] MEDS: hydrALAZINE HCL 20 MG/ML 1 ML VIAL IVP PRN ×2 (04:52→19:54)
[2021-12-07 06:41] LABS: Basophils % (A) 0 %; Eosinophils # (A) 0.2 k/uL (0-0.7); Eosinophils % (A) 1 %; HCT 40.8 % (39.0-53.0); HGB 12.8 gm/dL (13.0-17.5); Lymphocytes # (A) 2.6 k/uL (1.0-4.8); Lymphocytes % (A) 20 %; MCH 28.8 pg (25.0-35.0); MCHC 31.5 g/dL (31.0-37.0); MCV 91.6 fL (80.0-100.0); Mean Platelet Volume 7.6; Monocytes # (A) 0.8 k/uL (0-1.0); Monocytes % (A) 6 %; Neutrophils # (A) 9.6 k/uL (1.3-7.7); Neutrophils % (A) 72 %; Platelet Count 275 k/uL (150-450); RBC 4.46 m/uL (4.30-5.90); RDW 12.8 % (11.5-15.5); WBC 13.4 k/uL (3.8-10.6)
[2021-12-07 06:54] LABS: Glucose,Whole Blood 231 mg/dL (75-99)
[2021-12-07 07:16] LABS: African American GFR (CKD) >90 (>60 ml/min/1.73 sqM); Anion Gap 7 mmol/L; Blood Urea Nitrogen 16 mg/dL (9-20); Calcium 8.2 mg/dL (8.4-10.2); Carbon Dioxide 26 mmol/L (22-30); Chloride 102 mmol/L (98-107); Glucose 210 mg/dL (74-99); Non-African American GFR(CKD) >90 (>60 ml/min/1.73 sqM); Potassium 3.6 mmol/L (3.5-5.1); Sodium 135 mmol/L (137-145)
[2021-12-07] MEDS: PANTOPRAZOLE 40 MG/10 ML VIAL IVP SCH ×2 (07:31→19:54)
[2021-12-07] MEDS: amLODIPine 10 MG TAB PO SCH (07:32)
[2021-12-07] MEDS: INSULIN ASPART (NovoLOG) 100 UNIT/ML VIAL SQ SCH ×4 (07:32→20:54)
[2021-12-07] MEDS: THIAMINE 100 MG TAB PO SCH ×2 (07:32→17:17)
[2021-12-07] MEDS: FENOFIBRATE 160 MG TAB PO SCH (07:32)
[2021-12-07] MEDS: cloNIDine HCL 0.1 MG TAB PO SCH (07:32)
[2021-12-07] MEDS: LOSARTAN 50 MG TAB PO SCH (07:32)
[2021-12-07] MEDS ORDERED: POTASSIUM CHLORIDE ER 20 MEQ TAB.ER PO STA (09:25)
--- NOTE | 2021-12-07 10:28 | P.PN ---
Subjective Progress Note Date: 12/07/21 HISTORY OF PRESENT ILLNESS: This is a 56-year-old male with a past medical history significant for hypertension, hyperlipidemia, diabetes, nicotine dependence, and frequent alcohol use. 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 We have been asked to see the patient in consultation for abnormal EKG. Patient examined at the bedside. Patient presented to the hospital with a chief complaint of abdominal pain. Patient was found to have pancreatitis with lipase greater than 20,000. EKG completed revealing sinus bradycardia with right bundle branch block and T- wave inversions in anterior lateral leads as well as inferior leads. Patient denies having any chest pain or pressure. He does report some occasional shortness of breath with exertion. Blood pressure uncontrolled with SBP 190-200. Patients blood pressure medications were adjusted this morning by internal medicine. * EKG reveals sinus bradycardia with right bundle branch block and T-wave inversions in anterior lateral leads as well as inferior leads. * Chest xray negative for acute process * Laboratory data: CBC 15.52. Hemoglobin 14.7. Platelet count 228. Sodium 135. Potassium 3.7. BUN 11. Creatinine 0.6. Troponin negative 3. Lipase greater than 20,000 * Current home cardiac medications include Olmesa rtan/amlodipine/hydrochlorothiazide 40-10-25 mg daily, catapres 0.1 BID, and fenofibrate 160 mg daily * Patient underwent Lexiscan stress test in 2015 which was negative for ischemia 12/07/2021 Patient examined this morning. Patient is sitting up in the chair. Patient denies chest pain or pressure. He denies shortness of breath. Patient's blood pressure remains elevated with a reading of 177/89. Echocardiogram completed revealing ejection fraction 55-60%, mild to moderate mitral regurgitation, mild tricuspid regurgitation PHYSICAL EXAM: VITAL SIGNS: Reviewed. GENERAL: Well-developed in no acute distress. HEENT: Head is normocephalic. Pupils are equal, round. Sclerae anicteric. Mucous membranes of the mouth are moist. Neck supple. No JVD or thyromegaly LUNGS: Respirations even and unlabored. Lungs essentially clear to auscultation bilaterally. HEART: Regular rate and rhythm. S1 and S2 heard. ABDOMEN: Soft. Nondistended. Nontender. EXTREMITIES: Normal range of motion. No clubbing or cyanosis. Peripheral pulses intact. No lower extremity edema NEUROLOGIC: Awake and alert. Oriented x 3. ASSESSMENT: Abdominal pain Pancreatitis Abnormal EKG with diffuse T-wave inversions Hypertension, uncontrolled Hyperlipidemia Diabetes Nicotine dependence Frequent alcohol use PLAN: Continue current cardiac medications Increase Catapres to 0.2 mg twice a day for optimal blood pressure control Continue to monitor blood pressure Patient will require stress testing when he is medically stable Further recommendations pending patient course Nurse practitioner note has been reviewed by physician. Signing provider agrees with the documented findings, assessment, and plan of care. Objective - Vital Signs Vital signs: Vital Signs Temp 98.8 F 12/07/21 05:00 Pulse 83 12/07/21 05:00 Resp 16 12/07/21 05:00 BP 177/89 12/07/21 05:00 Pulse Ox 95 12/07/21 05:00 FiO2 Intake & Output 12/06/21 12/07/21 12/07/21 18:59 06:59 18:59 Intake Total 1380 10 Balance 1380 10 Intake: Intake, IV Titration 1380 Amount Sodium Chloride 0.9% 1, 1380 000 ml @ 100 mls/hr IV . Q10H MARIA ELENA Rx#:[id number] Oral 10 Other: Voiding Method Toilet # Voids 2 - Labs CBC & Chem 7: 12/07/21 05:37 12/07/21 05:37 Labs: Abnormal Lab Results - Last 24 Hours (Table) 12/06/21 12/06/21 12/06/21 Range/Units 06:11 06:11 06:11 WBC 15.52 H (4.50-10.00) X 10*3/uL Hgb (13.0-17.5) gm/dL Immature Gran # 0.06 H (0.00-0.04) X 10*3/uL Neutrophils # 12.40 H (1.80-7.70) X 10*3/uL Eosinophils # 0.02 L (0.04-0.35) X 10*3/uL Sodium (137-145) mmol/L Glucose (74-99) mg/dL POC Glucose (mg/dL) (75-99) mg/dL Hemoglobin A1c 9.7 H (0.0-6.0) % Calcium (8.4-10.2) mg/dL Lipase 1203 H (14-60) U/L 12/06/21 12/06/21 12/06/21 Range/Units 11:36 17:16 20:08 WBC (4.50-10.00) X 10*3/uL Hgb (13.0-17.5) gm/dL Immature Gran # (0.00-0.04) X 10*3/uL Neutrophils # (1.80-7.70) X 10*3/uL Eosinophils # (0.04-0.35) X 10*3/uL Sodium (137-145) mmol/L Glucose (74-99) mg/dL POC Glucose (mg/dL) 241 H 203 H 190 H (75-99) mg/dL Hemoglobin A1c (0.0-6.0) % Calcium (8.4-10.2) mg/dL Lipase (14-60) U/L 12/07/21 12/07/21 12/07/21 Range/Units 05:37 05:37 06:51 WBC 13.4 H (4.50-10.00) X 10*3/uL Hgb 12.8 L (13.0-17.5) gm/dL Immature Gran # (0.00-0.04) X 10*3/uL Neutrophils # 9.6 H (1.80-7.70) X 10*3/uL Eosinophils # (0.04-0.35) X 10*3/uL Sodium 135 L (137-145) mmol/L Glucose 210 H (74-99) mg/dL POC Glucose (mg/dL) 231 H (75-99) mg/dL Hemoglobin A1c (0.0-6.0) % Calcium 8.2 L (8.4-10.2) mg/dL Lipase (14-60) U/L
[2021-12-07 10:59] LABS: Glucose,Whole Blood 174 mg/dL (75-99)
[2021-12-07] MEDS: INSULIN DETEMIR (LEVEMIR) 100 UNIT/ML SYR SQ SCH (11:37)
[2021-12-07 12:12] VITALS: BMI 34.9
--- NOTE | 2021-12-07 15:54 | P.PN ---
Subjective Progress Note Date: 12/07/21 Principal diagnosis: Pancreatitis This a pleasant 56-year-old male who presented to the emergency department by EMS for sudden onset of severe epigastric/chest pain. States it began 2-3 days ago after eating soup yesterday the pain became very severe and rated it a 10 out of 10. He states that he did have some nausea and vomiting yesterday evening. States pain has improved somewhat today and is a 5-6 out of 10. He was also noted to have EKG changes on admission and cardiology was consulted. Cardiology recommended echo cardiogram and stress testing when patient medically stable. Patient denies any previous history of coronary artery disease. Patient was noted to have significantly elevated lipase greater than 20,000, consistent with acute pancreatitis. Gastroenterology was consulted for pancreatitis. Patient denies any previous history of pancreatitis in the past. Denies any previous history of cholecystectomy or gallbladder disease. No new medications or recent antibiotics. States that he is a moderate drinker 6 pack or more of beer a week along with shots of whiskey for many many years. Denies any history of underlying liver disease. Patient underwent CT angiogram thoracic and abdomen pelvis and aorta that showed significant inflammatory changes around the second and third parts of the duodenum as well as the pancreatic head and neck. 12/07/2021: Patient is seen and examined today as a follow-up. He came in with epigastric/right upper quadrant pain. She had EKG changes on admission. He is denying any chest pain or shortness of breath. Cardiology is following and recommending a stress test when patient is medically stable. He states abdominal pain has improved. No further nausea vomiting. No bowel movement but he is passing gas. Lipase improved to 504 today. His repeat liver enzymes were normal again yesterday. Unlikely we are dealing with gallstone pancreatitis, likely related to underlying alcoholism. Objective - Vital Signs Vital signs: Vital Signs Temp 98.8 F 12/07/21 05:00 Pulse 83 12/07/21 05:00 Resp 16 12/07/21 05:00 BP 177/89 12/07/21 05:00 Pulse Ox 95 12/07/21 05:00 FiO2 Intake & Output 12/06/21 12/07/21 12/07/21 18:59 06:59 18:59 Intake Total 1380 10 Balance 1380 10 Intake: Intake, IV Titration 1380 Amount Sodium Chloride 0.9% 1, 1380 000 ml @ 100 mls/hr IV . Q10H [facility] Rx#:[id number] Oral 10 Other: Voiding Method Toilet # Voids 2 - Exam General appearance: The patient is alert, oriented, appears in no acute distress. HET: Head is normocephalic and atraumatic. Conjunctiva pink. Sclera anicteric. Neck: Supple without lymphadenopathy. Abdomen: Soft, nontender, nondistended with bowel sounds. No guarding or rigidity. Extremities: Normal skin color and turgor. No pedal edema Skin: No rashes, no jaundice Neurological: No focal deficits. Alert and oriented 3. - Labs CBC & Chem 7: 12/07/21 05:37 12/07/21 05:37 Labs: Abnormal Lab Results - Last 24 Hours (Table) 12/06/21 12/06/21 12/06/21 Range/Units 06:11 06:11 06:11 WBC 15.52 H (4.50-10.00) X 10*3/uL Hgb (13.0-17.5) gm/dL Immature Gran # 0.06 H (0.00-0.04) X 10*3/uL Neutrophils # 12.40 H (1.80-7.70) X 10*3/uL Eosinophils # 0.02 L (0.04-0.35) X 10*3/uL Sodium (137-145) mmol/L Glucose (74-99) mg/dL POC Glucose (mg/dL) (75-99) mg/dL Hemoglobin A1c 9.7 H (0.0-6.0) % Calcium (8.4-10.2) mg/dL Lipase 1203 H (14-60) U/L 12/06/21 12/06/21 12/06/21 Range/Units 11:36 17:16 20:08 WBC (4.50-10.00) X 10*3/uL Hgb (13.0-17.5) gm/dL Immature Gran # (0.00-0.04) X 10*3/uL Neutrophils # (1.80-7.70) X 10*3/uL Eosinophils # (0.04-0.35) X 10*3/uL Sodium (137-145) mmol/L Glucose (74-99) mg/dL POC Glucose (mg/dL) 241 H 203 H 190 H (75-99) mg/dL Hemoglobin A1c (0.0-6.0) % Calcium (8.4-10.2) mg/dL Lipase (14-60) U/L 12/07/21 12/07/21 12/07/21 Range/Units 05:37 05:37 06:51 WBC 13.4 H (4.50-10.00) X 10*3/uL Hgb 12.8 L (13.0-17.5) gm/dL Immature Gran # (0.00-0.04) X 10*3/uL Neutrophils # 9.6 H (1.80-7.70) X 10*3/uL Eosinophils # (0.04-0.35) X 10*3/uL Sodium 135 L (137-145) mmol/L Glucose 210 H (74-99) mg/dL POC Glucose (mg/dL) 231 H (75-99) mg/dL Hemoglobin A1c (0.0-6.0) % Calcium 8.2 L (8.4-10.2) mg/dL Lipase (14-60) U/L Assessment and Plan (1) Pancreatitis Narrative/Plan: 56-year-old who presented with epigastric pain with acute onset. No previous history of pancreatitis, however admitting labs showed elevated lipase greater than 20,000 consistent with acute pancreatitis. Patient admits to moderate alcohol use over the last several years. No new medications or family history of pancreatitis. CT angiogram did show significant inflammation surrounding the pancreas. Ultrasound of the gallbladder shows enlarged heterogeneous liver con sistent with underlying fatty liver/hepatocellular disease. Gallbladder borderline hydropic with questionable non-mobile focus along posterior wall. However LFTs are normal and neck consistent with gallstone pancreatitis. Etiology likely due to underlying alcohol abuse. Continue with IV hydration, pain medications, and nothing by mouth diet. Repeat LFTs remained normal. Again unlikely dealing with occult stone pancreatitis and likely etiology related to alcohol abuse. Discussed with garth ent importance of alcohol abstinence. I will need to follow up outpatient with gastroenterology as well for fatty liver/hepatocellular disease. Current Visit: Yes Status: Acute Code(s): K85.90 - ACUTE PANCREATITIS WITHOU T NECROSIS OR INFECTION, UNSP SNOMED Code(s): 15123269 (2) Alcohol use disorder Current Visit: Yes Status: Acute Code(s): SXF3480 - SNOMED Code(s): 1596297 (3) Abnormal EKG Narrative/Plan: Cardiology following Current Visit: Yes Status: Acute Code(s): R94.31 - ABNORMAL ELECTROCARDIOGRAM [ECG] [EKG] SNOMED Code(s): 626135115 Plan: 1. Continue symptomatic and supportive care 2. Clear liquid diet, advance as tolerated 3. Pain medication as needed 4. Continue with recommendations per cardiology 5. Gallbladder ultrasound ordered and reviewed 6. Antiemetics as needed 7. Alcohol abstinence 8. Patient is cleared for discharge from gastroenterology and he is able to tolerate solids. Will need to follow-up with gastroenterology in 4 weeks Thank you for this consultation, we will continue to follow. Dr. Yesenia León I agree with the dictator's note, documented as a scribe by Leona Levy.
[2021-12-07 17:05] LABS: Glucose,Whole Blood 165 mg/dL (75-99)
[2021-12-07] MEDS: cloNIDine HCL 0.2 MG TAB PO SCH (19:54)
[2021-12-07 20:19] LABS: Glucose,Whole Blood 273 mg/dL (75-99)
[2021-12-07 20:34] VITALS: RESP 16
[2021-12-07] MEDS ORDERED: ACETAMINOPHEN TAB 325 MG TAB PO PRN (21:57)
[2021-12-07] MEDS ORDERED: traMADol 50 MG TAB PO SCH (22:00)
[2021-12-07] MEDS ORDERED: SODIUM CHLORIDE 0.9% 1,000 ML IV SCH (22:00)
--- NOTE | 2021-12-07 22:04 | P.PN ---
Subjective Progress Note Date: 12/07/21 This is a 56-year-old male who presents to hospital with complaints of epigastric pain ongoing over the last few days. States he had eaten a steak for dinner and the pain got worse. Decides to come to the when pain became 10/10 and severe following lunch at work the following day. He also had some assoc iated nausea and vomiting. Thoracic Aorta CT shows no evidence for aortic dissection, there is significant inflammatory changes around the duodenum, pancreatic head and neck. Lipase is >20,000, most likely acute pancreatitis, lipase has improved down to 1203 following NPO diet with ice chips and hydration with normal saline. Chest xray is negative. Past medical history includes diabetes mellitus, hyperlipidemia, hypertension, arthritis, daily 1/2 pack per day smoker. Patient also reports drinking 6 plus packs of beer per week and well as whiskey. He has no history of acid reflux, or liver disease. He does follow with Dr Muñoz for pain management outpatient. Does not check his blood sugars at home. States he has not had a colonoscopy before, possibly an upper endoscopy in the past he is not sure for what. Cardiology and GI services have been consulted. Blood pressure is elevated in the 200s systolic, losartan was increased, he is also receiving PRN hydralazine. Additional labs showing white count 14.1, sodium 133, potassium 3.4. Troponin negative x 3. EKG showing sinus bradycardia with right bundle branch block, T wave inversion Gallbladder ultrasound showing stone vs. gall bladder polyp, and common bile duct is dilated measuring 8mm, correlate for CBD obstruction Echocardiogram showing EF 55-60% with mild tricuspid regurg and mild to moderate mitral regurg. Moderate left atrial enlargement. 12/07/2021 Today he is sitting up in chair, overall abdominal pain has improved. States early this morning he had drank some water and abdominal pain was about a 7/10, he had gotten up to the restroom, requested pain medication and took a nap. When he awake he states his abdominal pain was gone, and now reports mild LUQ abdominal pain about a 2/10. He is passing some gas, has not had a BM. He has tolerated clear liquid diet and will be advanced to low fiber for dinner. Lipase is 501 today, sodium 135, white count 13. Blood glucose in the 270-200 range, his A1C is 9.7. He will be discharged on lantus, and will follow up with endocrinology outpatient. Discussed routine screenings as well, he states he needs to make an eye appointment. Blood pressure medications adjusted today, stress test outpatient recommended by cardiology. Patient should be able to discharge home tomorrow. Review of Systems Constitutional: Denied any fatigue denied any fever. Cardio vascular: denied any chest pain, palpitations Gastrointestinal: denied any nausea, vomiting, diarrhea, reports mild LUQ abdominal pain Pulmonary: Denied any shortness of breath cough Neurologic denied any new focal deficits All inpatient medications were reviewed and appropriate changes in these medications as dictated in the interval history and assessment and plan. PHYSICAL EXAMINATION: GENERAL: The patient is alert and oriented x3, not in any acute distress. Well developed, well nourished. Obese. HEENT: Pupils are round and equally reacting to light. EOMI. No scleral icterus. No conjunctival pallor. Normocephalic, atraumatic. No pharyngeal erythema. No thyromegaly. CARDIOVASCULAR: S1 and S2 present. No murmurs, rubs, or gallops. PULMONARY: Chest is clear to auscultation, no wheezing or crackles. ABDOMEN: Soft, tender epigastric and LUQ, nondistended, normoactive bowel sounds. No palpable organomegaly. MUSCULOSKELETAL: No joint swelling or deformity. EXTREMITIES: No cyanosis, clubbing, or pedal edema. NEUROLOGICAL: Gross neurological examination did not reveal any focal deficits. SKIN: No rashes. Assessment and Plan Assessment Acute epigastric and LUQ abdominal pain Acute pancreatitis most likely from alcohol use Abnormal EKG Diabetes mellitus type 2, uncontrolled Hypertension, uncontrolled on admission Hyperlipidemia Chronic alcohol abuse, counseling provided Chronic daily tobacco use, counseling provided Chronic pain Obesity GI Prophylaxis DVT Prophylaxis Full Code Plan Diet advanced as tolerated IV fluids decreased Blood pressure medication adjustments Stress test recommended by cardiology once medically stable Cardiology, GI consultation Patient has been started on lantus and will follow up with endocrinology outpatient Education provided on importance of lifestyle modifications include smoking cessation, alcohol cessation, diet modification. Plan is for discharge home tomorrow. The impression and plan of care has been dictated by Antonina Hannah Nurse Practitioner as directed. Dr. Lili MD I have performed a history and physical examination and medical decision making of this patient, discussed the same with the dictator, and agree with the dictators assessment and plan as written, documented as a scribe. Based on total visit time, I have performed more than 50% of this visit. Objective - Vital Signs Vital signs: Vital Signs Temp 98.8 F 12/07/21 05:00 Pulse 83 12/07/21 05:00 Resp 16 12/07/21 05:00 BP 177/89 12/07/21 05:00 Pulse Ox 95 12/07/21 05:00 FiO2 Intake & Output 12/06/21 12/07/21 12/07/21 18:59 06:59 18:59 Intake Total 1380 10 Balance 1380 10 Intake: Intake, IV Titration 1380 Amount Sodium Chloride 0.9% 1, 1380 000 ml @ 100 mls/hr IV . Q10H [facility] Rx#:[id number] Oral 10 Other: Voiding Method Toilet # Voids 2 - Labs CBC & Chem 7: 12/07/21 05:37 12/07/21 05:37 Labs: Abnormal Lab Results - Last 24 Hours (Table) 12/06/21 12/06/21 12/06/21 Range/Units 06:11 06:11 06:11 WBC 15.52 H (4.50-10.00) X 10*3/uL Hgb (13.0-17.5) gm/dL Immature Gran # 0.06 H (0.00-0.04) X 10*3/uL Neutrophils # 12.40 H (1.80-7.70) X 10*3/uL Eosinophils # 0.02 L (0.04-0.35) X 10*3/uL Sodium (137-145) mmol/L Glucose 264 H (70-110) mg/dL POC Glucose (mg/dL) (75-99) mg/dL Hemoglobin A1c (0.0-6.0) % Calcium 8.6 L (8.7-10.3) mg/dL Lipase 1203 H (14-60) U/L 12/06/21 12/06/21 12/06/21 Range/Units 06:11 11:36 17:16 WBC (4.50-10.00) X 10*3/uL Hgb (13.0-17.5) gm/dL Immature Gran # (0.00-0.04) X 10*3/uL Neutrophils # (1.80-7.70) X 10*3/uL Eosinophils # (0.04-0.35) X 10*3/uL Sodium (137-145) mmol/L Glucose (70-110) mg/dL POC Glucose (mg/dL) 241 H 203 H (75-99) mg/dL Hemoglobin A1c 9.7 H (0.0-6.0) % Calcium (8.7-10.3) mg/dL Lipase (14-60) U/L 12/06/21 12/07/21 12/07/21 Range/Units 20:08 05:37 05:37 WBC 13.4 H (4.50-10.00) X 10*3/uL Hgb 12.8 L (13.0-17.5) gm/dL Immature Gran # (0.00-0.04) X 10*3/uL Neutrophils # 9.6 H (1.80-7.70) X 10*3/uL Eosinophils # (0.04-0.35) X 10*3/uL Sodium 135 L (137-145) mmol/L Glucose 210 H (70-110) mg/dL POC Glucose (mg/dL) 190 H (75-99) mg/dL Hemoglobin A1c (0.0-6.0) % Calcium 8.2 L (8.7-10.3) mg/dL Lipase (14-60) U/L 12/07/21 Range/Units 06:51 WBC (4.50-10.00) X 10*3/uL Hgb (13.0-17.5) gm/dL Immature Gran # (0.00-0.04) X 10*3/uL Neutrophils # (1.80-7.70) X 10*3/uL Eosinophils # (0.04-0.35) X 10*3/uL Sodium (137-145) mmol/L Glucose (70-110) mg/dL POC Glucose (mg/dL) 231 H (75-99) mg/dL Hemoglobin A1c (0.0-6.0) % Calcium (8.7-10.3) mg/dL Lipase (14-60) U/L Assessment and Plan Time with Patient: Less than 30
[2021-12-08 07:14] LABS: Glucose,Whole Blood 207 mg/dL (75-99)
[2021-12-08] MEDS ORDERED: metFORMIN 500 MG TAB PO SCH (07:30)
[2021-12-08] MEDS: LOSARTAN 50 MG TAB PO SCH (08:12)
[2021-12-08] MEDS: amLODIPine 10 MG TAB PO SCH (08:12)
[2021-12-08] MEDS: FENOFIBRATE 160 MG TAB PO SCH (08:12)
[2021-12-08] MEDS: cloNIDine HCL 0.2 MG TAB PO SCH (08:12)
[2021-12-08] MEDS: THIAMINE 100 MG TAB PO SCH (08:12)
[2021-12-08] MEDS: INSULIN ASPART (NovoLOG) 100 UNIT/ML VIAL SQ SCH ×2 (08:13→12:29)
[2021-12-08] MEDS: PANTOPRAZOLE 40 MG/10 ML VIAL IVP SCH (08:13)
[2021-12-08] MEDS: INSULIN DETEMIR (LEVEMIR) 100 UNIT/ML SYR SQ SCH (08:13)
[2021-12-08] MEDS ORDERED: HYDROcodone/APAP 10-325MG 1 EACH TAB PO SCH (09:00)
[2021-12-08] MEDS ORDERED: Semaglutide [Rybelsus] PO SCH (09:00)
[2021-12-08] MEDS ORDERED: LABETALOL 100 MG TAB PO SCH (09:15)
[2021-12-08 10:41] LABS: Basophils # (A) 0.06 X 10*3/uL (0.00-0.10); Basophils % (A) 0.6 %; Eosinophils # (A) 0.26 X 10*3/uL (0.04-0.35); Eosinophils % (A) 2.6 %; HCT 40.7 % (39.6-50.0); HGB 13.5 g/dL (13.0-17.0); Immature Grans, Automated 0.3 %; Lymphocytes # (A) 2.05 X 10*3/uL (0.90-5.00); Lymphocytes % (A) 20.5 %; MCH 29.4 pg (27.0-32.0); MCHC 33.2 g/dL (32.0-37.0); MCV 88.7 fL (80.0-97.0); Mean Platelet Volume 10.2 fL (9.5-12.2); NRBC Per 100 WBC 0 /100 WBCS (0.0-0.0); Platelet Count 282 X 10*3/uL (140-440); RBC 4.59 X 10*6/uL (4.40-5.60); RDW 13.1 % (11.5-14.5)
[2021-12-08 11:07] LABS: African American GFR (CKD) 77.3 (60.0-200.0); Anion Gap 14.3 mmol/L (10.00-18.00); BUN/Creat Ratio 15.17 Ratio (12.00-20.00); Blood Urea Nitrogen 18.2 mg/dL (9.0-27.0); Calcium 8.9 mg/dL (8.7-10.3); Carbon Dioxide 21.7 mmol/L (20.0-27.5); Non-African American GFR(CKD) 66.7 (60.0-200.0); Potassium 3.9 mmol/L (3.5-5.5)
[2021-12-08 12:02] LABS: Glucose,Whole Blood 202 mg/dL (75-99)
--- NOTE | 2021-12-08 12:04 | P.PN ---
Subjective Progress Note Date: 12/08/21 HISTORY OF PRESENT ILLNESS: This is a 56-year-old male with a past medical history significant for hypertension, hyperlipidemia, diabetes, nicotine dependence, and frequent alcohol use. 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 We have been asked to see the patient in consultation for abnormal EKG. Patient examined at the bedside. Patient presented to the hospital with a chief complaint of abdominal pain. Patient was found to have pancreatitis with lipase greater than 20,000. EKG completed revealing sinus bradycardia with right bundle branch block and T- wave inversions in anterior lateral leads as well as inferior leads. Patient denies having any chest pain or pressure. He does report some occasional shortness of breath with exertion. Blood pressure uncontrolled with SBP 190-200. Patients blood pressure medications were adjusted this morning by internal medicine. * EKG reveals sinus bradycardia with right bundle branch block and T-wave inversions in anterior lateral leads as well as inferior leads. * Chest xray negative for acute process * Laboratory data: CBC 15.52. Hemoglobin 14.7. Platelet count 228. Sodium 135. Potassium 3.7. BUN 11. Creatinine 0.6. Troponin negative 3. Lipase greater than 20,000 * Current home cardiac medications include Olmesa rtan/amlodipine/hydrochlorothiazide 40-10-25 mg daily, catapres 0.1 BID, and fenofibrate 160 mg daily * Patient underwent Lexiscan stress test in 2016 which was negative for ischemia 12/07/2021 Patient examined this morning. Patient is sitting up in the chair. Patient denies chest pain or pressure. He denies shortness of breath. Patient's blood pressure remains elevated with a reading of 177/89. Echocardiogram completed revealing ejection fraction 55-60%, mild to moderate mitral regurgitation, mild tricuspid regurgitation 12/08/2021 Patient examined this morning at the bedside. Patient denies chest pain or pressure. He denies shortness of breath. He reports improvement in his abdominal pain. He is tolerating oral diet. Patient's blood pressure remains elevated this morning. PHYSICAL EXAM: VITAL SIGNS: Reviewed. GENERAL: Well-developed in no acute distress. HEENT: Head is normocephalic. Pupils are equal, round. Sclerae anicteric. Mucous membranes of the mouth are moist. Neck supple. No JVD or thyromegaly LUNGS: Respirations even and unlabored. Lungs essentially clear to auscultation bilaterally. HEART: Regular rate and rhythm. S1 and S2 heard. ABDOMEN: Soft. Nondistended. Nontender. EXTREMITIES: Normal range of motion. No clubbing or cyanosis. Peripheral pulses intact. No lower extremity edema NEUROLOGIC: Awake and alert. Oriented x 3. ASSESSMENT: Abdominal pain Pancreatitis Abnormal EKG with diffuse T-wave inversions Hypertension, uncontrolled Hyperlipidemia Diabetes Nicotine dependence Frequent alcohol use PLAN: Continue current cardiac medications Add labetalol 100 mg twice a day Continue to monitor blood pressure Patient will require stress testing when he is medically stable. This may be performed on an outpatient basis. Further recommendations pending patient course Nurse practitioner note has been reviewed by physician. Signing provider agrees with the documented findings, assessment, and plan of care. Objective - Vital Signs Vital signs: Vital Signs Temp 98.2 F 12/08/21 05:00 Pulse 74 12/08/21 05:00 Resp 16 12/08/21 05:00 BP 179/92 12/08/21 05:00 Pulse Ox 98 12/08/21 05:00 FiO2 Intake & Output 12/07/21 12/08/21 12/08/21 18:59 06:59 18:59 Intake Total 1200 590 Balance 1200 590 Weight 104.326 kg Intake: Intake, IV Titration 1200 Amount Sodium Chloride 0.9% 1, 1200 000 ml @ 100 mls/hr IV . Q10H [facility] Rx#:[id number] Oral 590 Other: Voiding Method Toilet Toilet # Voids 3 - Labs CBC & Chem 7: 12/08/21 08:05 12/08/21 08:05 Labs: Abnormal Lab Results - Last 24 Hours (Table) 12/07/21 12/07/21 12/08/21 Range/Units 17:03 20:18 07:12 Glucose (70-110) mg/dL POC Glucose (mg/dL) 165 H 273 H 207 H (75-99) mg/dL 12/08/21 12/08/21 Range/Units 08:05 11:59 Glucose 211 H (70-110) mg/dL POC Glucose (mg/dL) 202 H (75-99) mg/dL
--- NOTE | 2021-12-08 12:57 | P.DS ---
Providers Date of admission: 12/05/21 16:32 Attending physician: Obed Albrecht Consults: 12/05/21 16:33 Consult Physician Urgent Consulting Provider: [facility] Consult Reason/Comments: abnormal ekg Do you want consulting provider notified?: Yes Consult Physician Urgent Consulting Provider: Rosalva León Consult Reason/Comments: acute pancreatitis Do you want consulting provider notified?: Yes Primary care physician: Jeovany Gonzalez Hospital Course: Final Diagnosis Acute epigastric and LUQ abdominal pain Acute pancreatitis most likely from alcohol use Abnormal EKG Diabetes mellitus type 2, uncontrolled Hypertension, uncontrolled on admission Hyperlipidemia Chronic alcohol abuse, counseling provided Chronic daily tobacco use, counseling provided Chronic pain Obesity Discharge Disposition Patient is stable for discharge home. He will need to follow up with cardiology in the office next week. Continue to monitor blood pressure daily and keep log for follow up appointment with primary care. Patient will also require blood glucose monitoring three times a day, he is being discharged on injectible insulin. Repeat labs in 2-3 days to follow up sodium, creatinine levels. Patient will also schedule appointment with endocrinology. Hospital Course This is a 56-year-old male who presents to hospital with complaints of epigastric pain ongoing over the last few days. States he had eaten a steak for dinner and the pain got worse. Decides to come to the when pain became 10/10 and severe following lunch at work the following day. He also had some associated nausea and vomiting. Thoracic Aorta CT shows no evidence for aortic dissection, there is significant inflammatory changes around the duodenum, pancreatic head and neck. Lipase is >20,000, most likely acute pancreatitis, lipase has improved down to 1203 following NPO diet with ice chips and hydration with normal saline. Chest xray is negative. Past medical history includes diabetes mellitus, hyperlipidemia, hypertension, arthritis, daily 1/2 pack per day smoker. Patient also reports drinking 6 plus packs of beer per week and well as whiskey. He has no history of acid reflux, or liver disease. He does follow with Dr Muñoz for pain management outpatient. Does not check his blood sugars at home. States he has not had a colonoscopy before, possibly an upper endoscopy in the past he is not sure for what. Cardiology has evaluated the patient for EKG changes showing T wave inversions and echocardiogram was completed. Patient was also hypertensive on admission his systolic was up into the 200s, medication changes were done and he was also started on labetolol for blood pressure control. Patients diet was advanced to low fiber by GI services and his lipase has improved down to 501 today. Initially there was possibility of acute gallstone pancreatitis however his liver enzymes have remained normal and patient is no longer experiencing abdominal pain. Initial Diagnostics/treatment Blood pressure is elevated in the 200s systolic, losartan was increased, he is also receiving PRN hydralazine. Additional labs showing white count 14.1, sodium 133, potassium 3.4. Troponin negative x 3. EKG showing sinus bradycardia with right bundle branch block, T wave inversion Gallbladder ultrasound showing stone vs. gall bladder polyp, and common bile duct is dilated measuring 8mm, correlate for CBD obstruction Echocardiogram showing EF 55-60% with mild tricuspid regurg and mild to moderate mitral regurg. Moderate left atrial enlargement. 12/08/2021 Patient evaluated today while sitting up in the chair. Overall his abdominal pain has improved greatly. He reports mild 1-2/10 discomfort and his tolerated diet. No nausea, vomiting, or diarrhea noted. Labs have improved White count is 10.0, hgb 13.5, sodium 140, potassium 3.9, BUN 18.2, creat 1.2, blood glucose in the 200s. Patient was maintained on metformin and rybelsus at home and his A1C was found to be 9.7 this admission. He was started on basal and sliding scale insulin. He was being followed by cardiology regarding EKG changes and will need stress test outpatient. Blood pressure medications have also been adjusted. Denying shortness of breath, denying chest pain. S1 S2 auscultated, lungs are clear. Abdomen is soft, normoactive bowel sounds, mild LUQ tenderness with palpation but has improved overall. He is cleared by GI services to follow up in the office. Ideally cardiology would like patient to monitor overnight, however he has received news regarding his family that requires immediate attention and cardiology has agreed with discharge today. Patient and have been educated on new diabetic regimine. He needs gluocometer at home, and also needs to have a blood pressure cuff for monitoring. Please see medication reconciliation for a list of current medication. Thank you for allowing us to participate in the care of this patient. The impression and plan of care has been dictated by Antonina Hannah, Nurse Practitioner as directed. Dr. Lili MD I have performed a history and physical examination and medical decision making of this patient, discussed the same with the dictator, and agree with the dictators assessment and plan as written, documented as a scribe. Based on total visit time, I have performed more than 50% of this visit. Discharge Instructions given to patient as follows; Patient will need stress test outpatient once stable Monitor blood pressure daily and keep log for follow up with PCP and cardiology Recommend total alcohol cessation Recommend smoking cessation Follow up with primary care provider Follow up with Dr Yesenia León in 4 weeks Follow up with Dr [facility] in 1-2 weeks Follow up with Dr Prcie for diabetic management Recommend routine eye screening Continue with low fat diet Recommend outpatient diabetes education Continue to check blood sugar before meals at at bedtime Patients A1C was 9.7 on oral diabetic medications at home for this reason injectable insulin was added to medication regimine Patient will require blood glucose monitoring three times a day Keep a log for follow up appointment with primary care, and new appoint with endocrinology Cover with novolog via subcutaneous injection based on sliding scale provided If blood sugar is less than 131 to do not administer insulin for that dose Rotate injection sites; back of upper arms, abdomen, outer part of thigh Sliding Scale Blood Sugar Administer 131 to 165 1 unit 166 to 205 2 units 206 to 245 3 units 246 to 285 4 units 286 to 325 5 units 326 to 365 6 units 366 to 400 7 units Basaglar Insulin 12 units subcutaneous daily for basal insulin Continue with metformin Continue with Rybelsus Monitor for hypoglycemia symptoms including; excessive sweating, fatigue, lightheadedness, shakiness, mental confusion, unresponsiveness, blurred vision, slurred speech, tremor, unsteadiness This is not a comprehensive list of low blood sugar symptoms - if you are unsure check blood sugar If blood sugar is less than 70 or symptomatic drink apple juice or 2 tbsp peanut butter, or whatever you have available to bring blood sugar up Patient Condition at Discharge: Fair Plan - Discharge Summary New Discharge Prescriptions: New Thiamine [Vitamin B-1] 100 mg PO BID-W/MEALS #60 tab Insulin Aspart [NovoLOG Flexpen] 0 units SQ ACHS #2 each Omeprazole 20 mg PO DAILY #30 cap cloNIDine HCL [Catapres] 0.2 mg PO BID #60 tab Losartan [Cozaar] 100 mg PO DAILY #30 tab Insulin Glargine,Hum.rec.anlog [Basaglar Kwikpen U-100] 12 unit SQ DAILY 2 Days #2 each amLODIPine [Norvasc] 10 mg PO DAILY #30 tab Labetalol [Trandate] 100 mg PO BID #60 tab Continue Fenofibrate 160 mg PO DAILY Semaglutide [Rybelsus] 14 mg PO DAILY metFORMIN HCL [Glucophage] 1,000 mg PO BID HYDROcodone/APAP 10-325MG [[place] 10-325] 1 tab PO TID Discontinued cloNIDine HCL [Catapres] 0.1 mg PO BID Olmesartan/Amlodipin/Hcthiazid [[place]enz[place] 40-10-25 mg Tablet] 1 tab PO DAILY Discharge Medication List Fenofibrate 160 mg PO DAILY 12/05/21 [History] HYDROcodone/APAP 10-325MG [[place] 10-325] 1 tab PO TID 12/05/21 [History] Semaglutide [Rybelsus] 14 mg PO DAILY 12/05/21 [History] metFORMIN HCL [Glucophage] 1,000 mg PO BID 12/05/21 [History] Insulin Aspart [NovoLOG Flexpen] 0 units SQ ACHS #2 each 12/08/21 [Rx] Insulin Glargine,Hum.rec.anlog [Basaglar Kwikpen U-100] 12 unit SQ DAILY 2 Days #2 each 12/08/21 [Rx] Labetalol [Trandate] 100 mg PO BID #60 tab 12/08/21 [Rx] Losartan [Cozaar] 100 mg PO DAILY #30 tab 12/08/21 [Rx] Omeprazole 20 mg PO DAILY #30 cap 12/08/21 [Rx] Thiamine [Vitamin B-1] 100 mg PO BID-W/MEALS #60 tab 12/08/21 [Rx] amLODIPine [Norvasc] 10 mg PO DAILY #30 tab 12/08/21 [Rx] cloNIDine HCL [Catapres] 0.2 mg PO BID #60 tab 12/08/21 [Rx] Follow up Appointment(s)/Referral(s): Lisa Thayer MD [Primary Care Provider] - 1-2 days Yoni Price MD [REFERRING] - 2 Weeks Rosalva León MD [STAFF PHYSICIAN] - 4 Weeks Jaxson Balbuena MD [STAFF PHYSICIAN] - 1 Week Ambulatory/Diagnostic Orders: Basic Metabolic Panel [LAB.AMB] Time Frame: 2 Days, Location: None Selected Patient Instructions/Handouts: Low Fiber Diet (DC), Diabetes and Nutrition (DC) Activity/Diet/Wound Care/Special Instructions: Patient will need stress test outpatient once stable Recommend total alcohol cessation Recommend smoking cessation Follow up with primary care provider Follow up with Dr Yesenia León in 4 weeks Follow up with Dr [facility]bu[facility] in 1-2 weeks Follow up with Dr Price for diabetic management Recommend routine eye screening Continue with low fat diet Recommend outpatient diabetes education Continue to check blood sugar before meals at at bedtime Patients A1C was 9.7 on oral diabetic medications at home for this reason injectable insulin was added to medication regimine Patient will require blood glucose monitoring three times a day Keep a log for follow up appointment with primary care, and new appoint with endocrinology Cover with novolog via subcutaneous injection based on sliding scale provided If blood sugar is less than 131 to do not administer insulin for that dose Rotate injection sites; back of upper arms, abdomen, outer part of thigh Sliding Scale Blood Sugar Administer 131 to 165 1 unit 166 to 205 2 units 206 to 245 3 units 246 to 285 4 units 286 to 325 5 units 326 to 365 6 units 366 to 400 7 units Basaglar Insulin 12 units subcutaneous daily for basal insulin Continue with metformin Continue with Rybelsus Monitor for hypoglycemia symptoms including; excessive sweating, fatigue, lightheadedness, shakiness, mental confusion, unresponsiveness, blurred vision, slurred speech, tremor, unsteadiness This is not a comprehensive list of low blood sugar symptoms - if you are unsure check blood sugar If blood sugar is less than 70 or symptomatic drink apple juice or 2 tbsp peanut butter, or whatever you have available to bring blood sugar up A prescription has been sent for glucose tablets if needed for low blood sugar Discharge Disposition: HOME SELF-CARE
[2021-12-08 13:50] VITALS: BP 126/69; PULSE 80; TEMP 98.3
[2021-12-08] MEDS ORDERED: PANTOPRAZOLE 40 MG TABLET PO SCH (21:00)
== END 2021-12-08 17:00 | disposition home or self-care (01) | DRG 440 ==
LOC: EC 13:39 → 4SSUR 16:32 → 5NMEDONC 21:22
PROVIDERS: ADMIT Internal Medicine; ATTEND Internal Medicine
DX: K85.20 Alcohol induced acute pancreatitis without necrosis or infection (principal); E11.65 Type 2 diabetes mellitus with hyperglycemia; E66.9 Obesity, unspecified; E78.5 Hyperlipidemia, unspecified; F10.10 Alcohol abuse, uncomplicated; F17.210 Nicotine dependence, cigarettes, uncomplicated; G89.29 Other chronic pain; K83.8 Other specified diseases of biliary tract; I11.9 Hypertensive heart disease without heart failure; I45.10 Unspecified right bundle-branch block; K76.0 Fatty (change of) liver, not elsewhere classified; R00.1 Bradycardia, unspecified; R94.31 Abnormal electrocardiogram [ECG] [EKG]; I08.1 Rheumatic disorders of both mitral and tricuspid valves; M19.90 Unspecified osteoarthritis, unspecified site; Z79.899 Other long term (current) drug therapy; Z79.84 Long term (current) use of oral hypoglycemic drugs; Z79.891 Long term (current) use of opiate analgesic; Z98.890 Other specified postprocedural states; Z90.89 Acquired absence of other organs; Z68.35 Body mass index [BMI] 35.0-35.9, adult; Z71.41 Alcohol abuse counseling and surveillance of alcoholic; Z71.6 Tobacco abuse counseling; Z71.3 Dietary counseling and surveillance
CPT/HCPCS: 36415; 71045; 71275; 74174; 76705; 80048; 80053; 82247; 83036; 83615; 83690; 83735; 84075; 84450; 84460; 84484; 85025; 85610; 85730; 93005; 93306; 96361; 96372; 96374; 96375; 99285

== ENCOUNTER 2022-01-25 16:43 | Emergency (ER) | payer OTHER ==
[2022-01-25 16:53] VITALS: RESP 20; TEMP 98.7
[2022-01-25] MEDS ORDERED: SODIUM CHLORIDE 0.9% 1,000 ML IV STA (17:50)
[2022-01-25] MEDS ORDERED: HYDROmorphone 0.5 MG/0.5 ML SYRINGE IVP STA (17:50)
[2022-01-25] MEDS ORDERED: ONDANSETRON 4 MG/2 ML VIAL IVP STA (18:11)
[2022-01-25] MEDS ORDERED: PANTOPRAZOLE 40 MG/10 ML VIAL IVP STA (18:11)
--- NOTE | 2022-01-25 18:15 | ED ---
Abdominal Pain HPI - General Chief Complaint: Abdominal Pain Stated Complaint: Abdominal Pain, SERENITY Time Seen by Provider: 01/25/22 17:50 Source: patient, family, RN notes reviewed, old records reviewed Mode of arrival: wheelchair Limitations: no limitations - History of Present Illness Initial Comments: 57-year-old male presents to the emergency room with upper abdominal pain that started at 2:00 after eating a sandwich. Patient is scheduled for chol ecystectomy tomorrow with Dr. Randle at [facility]. was seen last month and found to have pancreatitis with a gallstone. States pain feels similar to that episode. He has had a couple of episodes of vomiting yellow in color today. States he felt hot with chills but no documented temperature. Denies any diarrhea, no chest pain or difficulty breathing. Patient does have history of hypertension and pancreatitis. MD Complaint: abdominal pain -: hour(s) (4) Location: LUQ, RUQ, epigastric Radiation: none Severity scale (1-10): 10 Quality: sharp Consistency: constant Improves With: nothing Worsens With: nothing Context: other (Scheduled for cholecystectomy tomorrow, history of gallstones) Associated Symptoms: nausea, vomiting, fever, chills - Related Data Home Medications Medication Instructions Recorded Confirmed Fenofibrate 160 mg PO DAILY 12/05/21 01/25/22 HYDROcodone/APAP 10-325MG [[place] 1 tab PO TID PRN 12/05/21 01/25/22 10-325] Insulin Aspart [NovoLOG Flexpen] See Protocol SQ ACHS PRN 01/25/22 01/25/22 Losartan Potassium 100 mg PO DAILY 01/25/22 01/25/22 Nicotine 14Mg/24Hr Patch [Habitrol 1 patch TRANSDERM DAILY 01/25/22 01/25/22 14Mg/24Hr Patch] metFORMIN HCL 500 mg PO BID 01/25/22 01/25/22 Previous Rx's Medication Instructions Recorded Insulin Glargine,Hum.rec.anlog 12 unit SQ DAILY 2 Days #2 each 12/08/21 [Basaglar Kwikpen U-100] Labetalol [Trandate] 100 mg PO BID #60 tab 12/08/21 Omeprazole 20 mg PO DAILY #30 cap 12/08/21 Thiamine [Vitamin B-1] 100 mg PO BID-W/MEALS #60 tab 12/08/21 amLODIPine [Norvasc] 10 mg PO DAILY #30 tab 12/08/21 Allergies Allergy/AdvReac Type Severity Reaction Status Date / Time No Known Allergies Allergy Verified 01/25/22 20:24 Review of Systems ROS Statement: Those systems with pertinent positive or pertinent negative responses have been documented in the HPI. ROS Other: All systems not noted in ROS Statement are negative. Past Medical History Past Medical History: Hyperlipidemia, Hypertension, Osteoarthritis (OA) Additional Past Medical History / Comment(s): pancreatitis History of Any Multi-Drug Resistant Organisms: None Reported Past Surgical History: Hernia Repair, Tonsillectomy Past Anesthesia/Blood Transfusion Reactions: No Reported Reaction Past Psychological History: No Psychological Hx Reported Smoking Status: Current every day smoker Past Alcohol Use History: None Reported Past Drug Use History: Marijuana General Exam Limitations: no limitations General appearance: alert, in no apparent distress Head exam: Present: atraumatic, normocephalic, normal inspection Eye exam: Absent: periorbital swelling ENT exam: Present: normal exam, normal oropharynx, mucous membranes moist Neck exam: Present: normal inspection. Absent: tenderness, meningismus Respiratory exam: Present: normal lung sounds bilaterally. Absent: respiratory distress, accessory muscle use Cardiovascular Exam: Present: bradycardia GI/Abdominal exam: Present: soft, tenderness (Left upper quadrant and epigastric). Absent: distended, guarding, rebound, rigid Extremities exam: Present: normal capillary refill Back exam: Absent: tenderness, CVA tenderness (R), CVA tenderness (L), rash noted Neurological exam: Present: alert, oriented X3 Psychiatric exam: Present: normal affect, normal mood Skin exam: Present: warm, dry, normal color. Absent: cyanosis, diaphoretic, petechiae, pallor Course Vital Signs 01/25/22 01/25/22 16:50 20:31 Temperature 98.7 F Pulse Rate 51 L 86 Respiratory 20 20 Rate Blood Pressure 125/66 186/84 O2 Sat by Pulse 100 98 Oximetry Medical Decision Making - Medical Decision Making 57-year-old male presents to the emergency room with abdominal pain and vomiting today around 2pm. He is scheduled to have a cholecystectomy tomorrow with Dr. Randle at [facility] after a diagnosis of pancreatitis on December 05 of this year with a lipase >66997. Gallbladder u/s on 12/06/21 showed CBD dilated 8mm with possible obstruction. Today labs show white blood count 14.1, amylase 1562, lipase 20495. Patient's pain has been controlled with Dilaudid. No further vomiting in the emergency room. He is maintained NPO and IV fluids given. Case discussed with Dr. Andrews. We do not have GI coverage patient will be transferred to [facility] for choledocholithiasis. Dose of Zosyn was given. Patient is agreeable to this plan of care. Vital signs are stable. - Lab Data Result diagrams: 01/25/22 18:16 01/25/22 18:16 Lab Results 01/25/22 01/25/22 01/25/22 Range/Units 18:16 18:16 18:16 WBC 14.1 H (3.8-10.6) k/uL RBC 5.25 (4.30-5.90) m/uL Hgb 15.5 (13.0-17.5) gm/dL Hct 46.1 (39.0-53.0) % MCV 87.8 (80.0-100.0) fL MCH 29.5 (25.0-35.0) pg MCHC 33.6 (31.0-37.0) g/dL RDW 12.8 (11.5-15.5) % Plt Count 214 (150-450) k/uL MPV 8.4 Neutrophils % 75 % Lymphocytes % 17 % Monocytes % 5 % Eosinophils % 2 % Basophils % 0 % Neutrophils # 10.6 H (1.3-7.7) k/uL Lymphocytes # 2.4 (1.0-4.8) k/uL Monocytes # 0.8 (0-1.0) k/uL Eosinophils # 0.3 (0-0.7) k/uL Basophils # 0.0 (0-0.2) k/uL PT (9.0-12.0) sec INR (<1.2) APTT (22.0-30.0) sec Sodium 138 (137-145) mmol/L Potassium 3.1 L (3.5-5.1) mmol/L Chloride 103 (98-107) mmol/L Carbon Dioxide 24 (22-30) mmol/L Anion Gap 11 mmol/L BUN 23 H (9-20) mg/dL Creatinine 0.87 (0.66-1.25) mg/dL Est GFR (CKD-EPI)AfAm >90 (>60 ml/min/1.73 sqM) Est GFR (CKD-EPI)NonAf >90 (>60 ml/min/1.73 sqM) Glucose 175 H (74-99) mg/dL Plasma Lactic Acid Apolinar 2.0 (0.7-2.0) mmol/L Calcium 9.5 (8.4-10.2) mg/dL Total Bilirubin 0.5 (0.2-1.3) mg/dL AST 28 (17-59) U/L ALT 25 (4-49) U/L Alkaline Phosphatase 66 (38-126) U/L Total Protein 7.6 (6.3-8.2) g/dL Albumin 4.6 (3.5-5.0) g/dL Amylase 1562 H* (30-110) U/L Lipase 74352 H (23-300) U/L // Range/Units 19:08 WBC (3.8-10.6) k/uL RBC (4.30-5.90) m/uL Hgb (13.0-17.5) gm/dL Hct (39.0-53.0) % MCV (80.0-100.0) fL MCH (25.0-35.0) pg MCHC (31.0-37.0) g/dL RDW (11.5-15.5) % Plt Count (150-450) k/uL MPV Neutrophils % % Lymphocytes % % Monocytes % % Eosinophils % % Basophils % % Neutrophils # (1.3-7.7) k/uL Lymphocytes # (1.0-4.8) k/uL Monocytes # (0-1.0) k/uL Eosinophils # (0-0.7) k/uL Basophils # (0-0.2) k/uL PT 10.9 (9.0-12.0) sec INR 1.0 (<1.2) APTT 20.8 L (22.0-30.0) sec Sodium (137-145) mmol/L Potassium (3.5-5.1) mmol/L Chloride (98-107) mmol/L Carbon Dioxide (22-30) mmol/L Anion Gap mmol/L BUN (9-20) mg/dL Creatinine (0.66-1.25) mg/dL Est GFR (CKD-EPI)AfAm (>60 ml/min/1.73 sqM) Est GFR (CKD-EPI)NonAf (>60 ml/min/1.73 sqM) Glucose (74-99) mg/dL Plasma Lactic Acid Apolinar (0.7-2.0) mmol/L Calcium (8.4-10.2) mg/dL Total Bilirubin (0.2-1.3) mg/dL AST (17-59) U/L ALT (4-49) U/L Alkaline Phosphatase (38-126) U/L Total Protein (6.3-8.2) g/dL Albumin (3.5-5.0) g/dL Amylase (30-110) U/L Lipase (23-300) U/L Disposition Clinical Impression: Pancreatitis, Choledocholithiasis Disposition: OTHER INSTITUTION NOT DEFINED Referrals: Marta Cleaning [Primary Care Provider] - 1-2 days Decision Date: 01/25/22 Decision Time: 19:33 - Out of Hospital Transfer - Req. Specs Out of Hospital Transfer - Requested Specifics: Other Emergency Center ([facility])
[2022-01-25 18:52] LABS: ALT 25 U/L (4-49); AST 28 U/L (17-59); African American GFR (CKD) >90 (>60 ml/min/1.73 sqM); Albumin 4.6 g/dL (3.5-5.0); Alkaline Phosphatase 66 U/L (38-126); Anion Gap 11 mmol/L; Blood Urea Nitrogen 23 mg/dL (9-20); Calcium 9.5 mg/dL (8.4-10.2); Carbon Dioxide 24 mmol/L (22-30); Chloride 103 mmol/L (98-107); Glucose 175 mg/dL (74-99); Non-African American GFR(CKD) >90 (>60 ml/min/1.73 sqM); Potassium 3.1 mmol/L (3.5-5.1); Sodium 138 mmol/L (137-145); Total Bilirubin 0.5 mg/dL (0.2-1.3); Total Protein 7.6 g/dL (6.3-8.2)
[2022-01-25 18:56] LABS: Basophils % (A) 0 %; Eosinophils # (A) 0.3 k/uL (0-0.7); Eosinophils % (A) 2 %; HCT 46.1 % (39.0-53.0); HGB 15.5 gm/dL (13.0-17.5); Lymphocytes # (A) 2.4 k/uL (1.0-4.8); Lymphocytes % (A) 17 %; MCH 29.5 pg (25.0-35.0); MCHC 33.6 g/dL (31.0-37.0); MCV 87.8 fL (80.0-100.0); Mean Platelet Volume 8.4; Monocytes # (A) 0.8 k/uL (0-1.0); Monocytes % (A) 5 %; Neutrophils # (A) 10.6 k/uL (1.3-7.7); Neutrophils % (A) 75 %; Platelet Count 214 k/uL (150-450); RBC 5.25 m/uL (4.30-5.90); RDW 12.8 % (11.5-15.5); WBC 14.1 k/uL (3.8-10.6)
[2022-01-25 19:00] LABS: Amylase 1562 U/L (30-110)
[2022-01-25 19:12] LABS: Lipase 14420 U/L (23-300)
[2022-01-25] MEDS ORDERED: SODIUM CHLORIDE 0.9% 1,000 ML IV SCH (19:45)
[2022-01-25 20:02] LABS: Prothrombin Time 10.9 sec (9.0-12.0)
[2022-01-25] MEDS ORDERED: HYDROmorphone 1 MG/ML 1 ML SYRINGE IVP STA (20:07)
[2022-01-25 20:14] LABS: Partial Thromboplastin Time 20.8 sec (22.0-30.0)
[2022-01-25 20:32] VITALS: BP 186/84; PULSE 86
[2022-01-25] MEDS ORDERED: PIPERACILLIN-TAZOBACTAM 3.375 GM in SODIUM CHLORIDE 0.9% 100 ML IVPB STA (21:01)
== END 2022-01-25 21:34 | disposition other institution (70) ==
LOC: EC 16:43
DX: K85.90 Acute pancreatitis without necrosis or infection, unspecified (principal); K80.50 Calculus of bile duct without cholangitis or cholecystitis without obstruction; I10 Essential (primary) hypertension; E78.5 Hyperlipidemia, unspecified; F17.200 Nicotine dependence, unspecified, uncomplicated; Z79.899 Other long term (current) drug therapy
CPT/HCPCS: 99284; 96374; 96376; 96375; 96361; 36415; 80053; 82150; 83605; 83690; 85025; 85610; 85730; J2543; J2405; J1170 ×2; C9113

== ENCOUNTER → 2022-04-19 | Outpatient (CLI) | payer OTHER ==
[2022-04-19 18:05] LABS: Basophils # (A) 0.06 X 10*3/uL (0.00-0.10); Basophils % (A) 0.9 %; Eosinophils # (A) 0.23 X 10*3/uL (0.04-0.35); Eosinophils % (A) 3.4 %; HGB 14.1 g/dL (13.0-17.0); Immature Grans, Automated 0.3 %; Lymphocytes # (A) 2.87 X 10*3/uL (0.90-5.00); MCH 29.6 pg (27.0-32.0); MCHC 34.4 g/dL (32.0-37.0); Mean Platelet Volume 9.3 fL (9.5-12.2); Monocytes # (A) 0.57 X 10*3/uL (0.20-1.00); Monocytes % (A) 8.3 %; NRBC Per 100 WBC 0 /100 WBCS (0.0-0.0); Neutrophils # (A) 3.09 X 10*3/uL (1.80-7.70); Neutrophils % (A) 45.1 %; Platelet Count 312 X 10*3/uL (140-440); RBC 4.77 X 10*6/uL (4.40-5.60); RDW 13.9 % (11.5-14.5); WBC 6.84 X 10*3/uL (4.50-10.00)
[2022-04-19 19:54] LABS: Rheumatoid Factor, Qnt <10 IU/mL (0-15)
[2022-04-19 20:58] LABS: Cyclic Citrull Pep IgG Unit <0.5 U/mL; Cyclic Citrullinated Pep IgG NEGATIVE (NEGATIVE)
[2022-04-19 21:19] LABS: ALT 17 U/L (10-49); AST 20 U/L (14-35); African American GFR (CKD) 112.1 (60.0-200.0); Albumin 4.2 g/dL (3.8-4.9); Alkaline Phosphatase 50 U/L (41-126); BUN/Creat Ratio 15.33 Ratio (12.00-20.00); Blood Urea Nitrogen 12.8 mg/dL (9.0-27.0); Calcium 9.2 mg/dL (8.7-10.3); Chloride 101 mmol/L (96-109); Chol/HDL Ratio 3.98 Ratio; Globulin 2.8 g/dL (1.6-3.3); Glucose 114 mg/dL (70-110); LDL Cholesterol,Calculated 83.3 mg/dL (0.0-131.0); Non-African American GFR(CKD) 96.8 (60.0-200.0); Potassium 3.7 mmol/L (3.5-5.5); Sodium 141 mmol/L (135-145)
== END | disposition home or self-care (01) ==
LOC: LABWHC1 12:57
PROVIDERS: ATTEND Family Medicine
DX: Z00.00 Encounter for general adult medical examination without abnormal findings (principal); I10 Essential (primary) hypertension; E11.9 Type 2 diabetes mellitus without complications; E78.2 Mixed hyperlipidemia; M25.50 Pain in unspecified joint
CPT/HCPCS: 84439; 80061; 80053; 84443; 85025; 86431; 82306; 86038; 86200; 83036; 36415; G0103

== ENCOUNTER → 2022-09-15 | Outpatient (CLI) | payer OTHER ==
[2022-09-15 18:40] LABS: Basophils # (A) 0.03 X 10*3/uL (0.00-0.10); Basophils % (A) 0.4 %; Eosinophils # (A) 0.17 X 10*3/uL (0.04-0.35); Eosinophils % (A) 2.1 %; HGB 16.3 g/dL (13.0-17.0); Immature Grans, Automated 0.3 %; Lymphocytes # (A) 2.34 X 10*3/uL (0.90-5.00); Lymphocytes % (A) 29.3 %; MCH 29.2 pg (27.0-32.0); MCHC 33.3 g/dL (32.0-37.0); MCV 87.7 fL (80.0-97.0); Mean Platelet Volume 10.1 fL (9.5-12.2); Monocytes # (A) 0.48 X 10*3/uL (0.20-1.00); NRBC Per 100 WBC 0 /100 WBCS (0.0-0.0); Neutrophils # (A) 4.96 X 10*3/uL (1.80-7.70); Neutrophils % (A) 61.9 %; Platelet Count 316 X 10*3/uL (140-440); RBC 5.59 X 10*6/uL (4.40-5.60); RDW 12.9 % (11.5-14.5)
[2022-09-15 20:28] LABS: African American GFR (CKD) 114.1 (60.0-200.0); Albumin 4.3 g/dL (3.8-4.9); Albumin/Globulin Ratio 1.43 (1.60-3.17); Anion Gap 13.2 mmol/L (10.00-18.00); BUN/Creat Ratio 15.5 Ratio (12.00-20.00); Blood Urea Nitrogen 12.4 mg/dL (9.0-27.0); Calcium 9.5 mg/dL (8.7-10.3); Carbon Dioxide 24.8 mmol/L (20.0-27.5); Non-African American GFR(CKD) 98.5 (60.0-200.0); Potassium 3.9 mmol/L (3.5-5.5); Total Bilirubin 0.4 mg/dL (0.30-1.20); Total Protein 7.3 g/dL (6.2-8.2)
== END | disposition home or self-care (01) ==
LOC: LABWHC1 11:46
PROVIDERS: ATTEND Family Medicine
DX: E11.9 Type 2 diabetes mellitus without complications (principal)
CPT/HCPCS: 36415; 80053; 83036; 85025

== ENCOUNTER → 2023-02-16 | Outpatient (CLI) | payer OTHER ==
[2023-02-16 20:00] LABS: ALT 24 U/L (10-49); AST 25 U/L (14-35); Albumin 4.4 d/dL (3.8-4.9); Alkaline Phosphatase 52 U/L (41-126); Blood Urea Nitrogen 17.4 mg/dL (9.0-27.0); Carbon Dioxide 25.7 mmol/L (21.6-31.8); Chloride 102 mmol/L (96-109); Globulin 2.2 d/dL (1.6-3.3); Glucose 87 mg/dL (70-110); Potassium 3.6 mmol/L (3.5-5.5); Sodium 140 mmol/L (135-145); Total Bilirubin 0.3 mg/dL (0.3-1.2); Total Protein 6.6 d/dL (6.2-8.2)
[2023-02-17 02:00] LABS: Basophils # (A) 0.04 X 10*3/uL (0.00-0.10); Basophils % (A) 0.4 %; Eosinophils # (A) 0.22 X 10*3/uL (0.04-0.35); Eosinophils % (A) 2.2 %; HCT 42.3 % (39.6-50.0); HGB 14.6 d/dL (13.0-17.0); Lymphocytes # (A) 3.94 X 10*3/uL (0.90-5.00); MCH 30.2 pg (27.0-32.0); MCHC 34.5 d/dL (32.0-37.0); MCV 87.4 FL (80.0-97.0); Mean Platelet Volume 10.4 FL (9.5-12.2); Monocytes # (A) 0.71 X 10*3/uL (0.20-1.00); Monocytes % (A) 7.2 %; NRBC Per 100 WBC 0 X 10*3/uL (0.00-0.01); Neutrophils # (A) 4.93 X 10*3/uL (1.80-7.70); Platelet Count 322 X 10*3/uL (140-440); RBC 4.84 X 10*6/uL (4.40-5.60); RDW 12.8 % (11.5-14.5); WBC 9.86 X 10*3/uL (4.50-10.00)
== END | disposition home or self-care (01) ==
LOC: LABWHC1 16:01
PROVIDERS: ATTEND Family Medicine
DX: E11.9 Type 2 diabetes mellitus without complications (principal); E78.5 Hyperlipidemia, unspecified; M25.50 Pain in unspecified joint
CPT/HCPCS: 36415; 80053; 83036; 85025

== ENCOUNTER → 2023-08-10 | Outpatient (CLI) | payer OTHER ==
[2023-08-10 10:59] LABS: Basophils # (A) 0.04 X 10*3/uL (0.00-0.10); Basophils % (A) 0.4 %; Eosinophils # (A) 0.19 X 10*3/uL (0.04-0.35); Eosinophils % (A) 1.9 %; HCT 41.4 % (39.6-50.0); HGB 14.4 g/dL (13.0-17.0); Lymphocytes # (A) 3.44 X 10*3/uL (0.90-5.00); Lymphocytes % (A) 34.7 %; MCH 29.6 pg (27.0-32.0); MCHC 34.8 g/dL (32.0-37.0); MCV 85.2 FL (80.0-97.0); Mean Platelet Volume 10.1 FL (9.5-12.2); Monocytes # (A) 0.71 X 10*3/uL (0.20-1.00); Monocytes % (A) 7.2 %; NRBC Per 100 WBC 0 X 10*3/uL (0.00-0.01); Neutrophils # (A) 5.49 X 10*3/uL (1.80-7.70); Neutrophils % (A) 55.5 %; Platelet Count 297 X 10*3/uL (140-440); RBC 4.86 X 10*6/uL (4.40-5.60); RDW 12.6 % (11.5-14.5)
[2023-08-10 16:39] LABS: ALT 20 U/L (10-49); AST 18 U/L (14-35); Albumin/Globulin Ratio 1.54 Ratio (1.60-3.17); Alkaline Phosphatase 46 U/L (41-126); BUN/Creat Ratio 19.36 Ratio (12.00-20.00); Blood Urea Nitrogen 21.3 mg/dL (9.0-27.0); Calcium 9.3 mg/dL (8.7-10.3); Carbon Dioxide 26.1 mmol/L (21.6-31.8); Chloride 101 mmol/L (96-109); Chol/HDL Ratio 3.93 Ratio; Globulin 2.6 g/dL (1.6-3.3); Glucose 108 mg/dL (70-110); LDL Cholesterol,Calculated 91.8 mg/dL (0.0-131.0); Sodium 140 mmol/L (135-145); Total Bilirubin 0.4 mg/dL (0.3-1.2); Total Protein 6.6 g/dL (6.2-8.2)
== END | disposition home or self-care (01) ==
LOC: LABWHC1 07:50
PROVIDERS: ATTEND Family Medicine
DX: Z00.00 Encounter for general adult medical examination without abnormal findings (principal); Z12.5 Encounter for screening for malignant neoplasm of prostate
CPT/HCPCS: 80061; 80053; 84443; 85025; 82306; 36415; G0103

== ENCOUNTER → 2023-08-16 | Outpatient (CLI) | payer OTHER | END | disposition home or self-care (01) | LOC: LABWHC1 08:00 | PROVIDERS: ATTEND Family Medicine | DX: E87.6 Hypokalemia (principal) | CPT/HCPCS: 36415; 84132 ==

== ENCOUNTER → 2023-08-24 | Outpatient (CLI) | payer OTHER | END | disposition home or self-care (01) | LOC: LABWHC1 07:34 | PROVIDERS: ATTEND Family Medicine | DX: E87.6 Hypokalemia (principal) | CPT/HCPCS: 36415; 84132 ==

== ENCOUNTER → 2023-09-20 | Outpatient (CLI) | payer OTHER ==
[2023-09-20 11:39] LABS: ALT 23 U/L (10-49); AST 18 U/L (14-35); Albumin 4.3 g/dL (3.8-4.9); Albumin/Globulin Ratio 1.79 Ratio (1.60-3.17); Alkaline Phosphatase 45 U/L (41-126); BUN/Creat Ratio 19.55 Ratio (12.00-20.00); Blood Urea Nitrogen 21.5 mg/dL (9.0-27.0); Calcium 9.7 mg/dL (8.7-10.3); Carbon Dioxide 26.7 mmol/L (21.6-31.8); Chloride 100 mmol/L (96-109); Globulin 2.4 g/dL (1.6-3.3); Glucose 100 mg/dL (70-110); Potassium 3.5 mmol/L (3.5-5.5); Sodium 138 mmol/L (135-145); Total Bilirubin 0.3 mg/dL (0.3-1.2); Total Protein 6.7 g/dL (6.2-8.2)
== END | disposition home or self-care (01) ==
LOC: LABWHC1 07:20
PROVIDERS: ATTEND Family Medicine
DX: I10 Essential (primary) hypertension (principal); E87.6 Hypokalemia
CPT/HCPCS: 36415; 80053

== ENCOUNTER → 2023-11-08 | Outpatient (CLI) | payer OTHER ==
--- NOTE | 2023-11-09 07:55 | US ---
EXAMINATION TYPE: US renal artery duplex complet DATE OF EXAM: 11/08/2023 COMPARISON: NONE CLINICAL INDICATION: Male, 58 years old with history of I10 HTN; HTN exam limitations due to body hab itus. MEASUREMENTS: RENAL SIZE: Right Kidney: 11.1 x 5.5 x 6.2 cm Left Kidney: 11.3 x 5.3 x 4.5 cm Right Kidney: wnl Left Kidney: wnl Abd Aorta: wnl RESISTANCE INDEX Right: .83 Left:.70 RA/AO RATIO (< 3.5 ) Right: 1.0 Left: 0.7 RENAL ARTERY VELOCITY ( < 180 cm/s) Right: 137.9 Left: 93.8 IMPRESSION: 1. Based on peak systolic velocities and ratios, there is no significant renal artery stenosis. 2. Mildly elevated resistive index for the right kidney which could indicate mild medical renal disea se.
== END | disposition home or self-care (01) ==
LOC: RADUSWWP 07:08
PROVIDERS: ATTEND Internal Medicine Cardiovascular Disease
DX: I10 Essential (primary) hypertension (principal)
CPT/HCPCS: 93975

== ENCOUNTER → 2024-08-05 | Outpatient (CLI) | payer OTHER ==
[2024-08-05 19:01] LABS: Basophils # (A) 0.06 X 10*3/uL (0.00-0.10); Basophils % (A) 0.8 %; Eosinophils # (A) 0.31 X 10*3/uL (0.04-0.35); HCT 41.5 % (39.6-50.0); HGB 13.6 g/dL (13.0-17.0); Lymphocytes # (A) 1.82 X 10*3/uL (0.90-5.00); Lymphocytes % (A) 23.4 %; MCH 29.3 pg (27.0-32.0); MCHC 32.8 g/dL (32.0-37.0); MCV 89.4 FL (80.0-97.0); Mean Platelet Volume 10.6 FL (9.5-12.2); Monocytes % (A) 6.4 %; NRBC Per 100 WBC 0 X 10*3/uL (0.00-0.01); Neutrophils # (A) 5.05 X 10*3/uL (1.80-7.70); Platelet Count 293 X 10*3/uL (140-440); RBC 4.64 X 10*6/uL (4.40-5.60); RDW 13.3 % (11.5-14.5); WBC 7.77 X 10*3/uL (4.50-10.00)
[2024-08-05 19:53] LABS: Urine Creatinine 62.3 mg/dL (39.0-259.0)
[2024-08-05 20:02] LABS: ALT 24 U/L (10-49); AST 20 U/L (14-35); Albumin 3.6 g/dL (3.8-4.9); Albumin/Globulin Ratio 1.57 Ratio (1.60-3.17); Alkaline Phosphatase 59 U/L (41-126); BUN/Creat Ratio 25.08 Ratio (12.00-20.00); Blood Urea Nitrogen 30.1 mg/dL (9.0-27.0); Calcium 8.9 mg/dL (8.7-10.3); Carbon Dioxide 29.3 mmol/L (21.6-31.8); Chloride 106 mmol/L (96-109); Globulin 2.3 g/dL (1.6-3.3); Glucose 191 mg/dL (70-110); Potassium 3.8 mmol/L (3.5-5.5); Sodium 144 mmol/L (135-145); Total Bilirubin 0.3 mg/dL (0.3-1.2); Total Protein 5.9 g/dL (6.2-8.2)
== END | disposition home or self-care (01) ==
LOC: LABWHC1 08:19
PROVIDERS: ATTEND Family Medicine
DX: I10 Essential (primary) hypertension (principal); E11.9 Type 2 diabetes mellitus without complications; E55.9 Vitamin D deficiency, unspecified
CPT/HCPCS: 36415; 80053; 82043; 82306; 82570; 83036; 85025

== ENCOUNTER → 2024-12-09 | Outpatient (CLI) | payer OTHER ==
[2024-12-09 15:44] LABS: Chol/HDL Ratio 3.02 Ratio; LDL Cholesterol,Calculated 67.5 mg/dL (0.0-131.0); VLDL Calculation 16.08 mg/dL (5.00-40.00)
== END | disposition home or self-care (01) ==
LOC: LABWHC1 07:44
PROVIDERS: ATTEND Family Medicine
DX: Z12.5 Encounter for screening for malignant neoplasm of prostate (principal); E78.2 Mixed hyperlipidemia; E55.9 Vitamin D deficiency, unspecified
CPT/HCPCS: 80061; 82306; 36415; G0103